=== PATIENT | female | born 1995 | race Caucasian/White ===

== ENCOUNTER 2019-11-24 09:32 | Outpatient (CLI) | payer BC, OTHER, SELFPAY ==
--- NOTE | ~2019-11-24 | US_ITS ---
EXAMINATION: US OB <= 14 weeks fetus DATE: 11/24/2019 10:25 INDICATION: First trimester dating TECHNIQUE: Real-time pelvic transabdominal and transvaginal ultrasound was performed. COMPARISON: None. FINDINGS: The uterus measures 12.3 x 7.4 x 6.4 cm. There is an intrauterine gestational sac. A yolk sac is identified. heart motion is identified measuring 171 beats per minute (bpm) by M-mode Do ppler. The crown rump length measures 2.1 cm , which correlates with an estimated gestational a ge of 8 weeks and 5 day(s) (+/-) 4 day(s). The right ovary measures 3.0 x 2.0 x 2.8 cm. The left ovary measures 2.1 x 1.2 x 1.7 cm. There is nor mal vascular flow in the ovaries. There is no free fluid in the pelvis. IMPRESSION: 1. Live intrauterine with an estimated gestational age of 8 weeks and 5 day(s) (+/-) 4 day( s) and an estimated delivery date of 06/30/2020. Reviewed, dictated and finalized at location B. IMPRESSION: 1. Live intrauterine with an estimated gestational age of 8 weeks and 5 day(s) (+/-) 4 day(s) and an estimated delivery date of 06/30/2020.
== END 2019-11-24 09:33 | disposition home or self-care (01) ==
LOC: ANHIMG 09:36
PROVIDERS: PCP Emergency Medicine; Visit Provider Obstetrics & Gynecology
DX: Z34.91 Encounter for supervision of normal pregnancy, unspecified, first trimester (principal); Z3A.08 8 weeks gestation of pregnancy
CPT/HCPCS: 76801

== ENCOUNTER 2020-01-06 12:46 | Outpatient (CLI) | payer OTHER, SELFPAY ==
--- NOTE | ~2020-01-06 | US_ITS ---
EXAMINATION: US OB follow up EXAM DATE: 01/06/2020 13:30 INDICATION: Encounter For Supervision Of Normal . 2nd trimester. TECHNIQUE: Pelvic obstetrical transabdominal sonogram was performed by a technologist. There are mu ltiple grayscale and Doppler images available for interpretation. Comparison is made to prior examina tion from 11/24/2019. FINDINGS: There is a single fetus identified in breech presentation with a heart rate of 145 beats pe r minute. The placenta is located in the anterior position. There is no sonographic evidence of retr oplacental hemorrhage identified. There is subjectively expected amount of amniotic fluid. BIOMETRIC DATA: Biparietal diameter (BPD): 3.2cm ----------------> 16 weeks 1 day. Head circumference (HC): 11.2 cm ----------------> 15 weeks 3 days. Abdominal circumference (AC): 9.4 cm ----------> 15 weeks 4 days. Femur length (FL): 1.7 cm --------------------------> 15 weeks 0 days. These measurements are concordant. HC/AC ratio is 1.20 (The 5th -- 95th percentile range is 1.06-1.36. Estimated weight is 119 g +/- 18 g. This is the 66th percentile when the currently reported cl inical gestation age 14 weeks 6 days, clinical estimated date of delivery (MARE-OPE) 06/30/2020 is used . estimated gestational age based on measurements from this exam is 15 weeks 4 days, with an es timated date of delivery (MARE-AUA) 06/25. IMPRESSION: 1. Single fetus in breech presentation with heart rate 145 beats per minute. 2. Estimated weight of 119 grams, 66 percentile using the currently reported clinical gestatio n age of 14 weeks 6 days, MARE(OPE) 06/30. Reviewed, dictated and finalized at location A. IMPRESSION: 1. Single fetus in breech presentation with heart rate 145 beats per minute. 2. Estimated weight of 119 grams, 66 percentile using the currently repo rted clinical gestation age of 14 weeks 6 days, MARE(OPE) 06/30.
== END 2020-01-06 12:47 | disposition home or self-care (01) ==
PROVIDERS: PCP Emergency Medicine; Visit Provider Obstetrics & Gynecology
DX: E72.12 Methylenetetrahydrofolate reductase deficiency (principal); Z34.92 Encounter for supervision of normal pregnancy, unspecified, second trimester; Z3A.15 15 weeks gestation of pregnancy
CPT/HCPCS: 76816

== ENCOUNTER 2020-02-01 13:20 | Outpatient (CLI) | payer OTHER, SELFPAY ==
--- NOTE | ~2020-02-01 | US_ITS ---
EXAMINATION: US OB /maternal detail DATE: 02/01/2020 14:44 INDICATION: Routine care. TECHNIQUE: Real-time ultrasound of the pelvis was performed. COMPARISON: Ultrasound 01/06/2020, 11/24/2019 FINDINGS: There is a single living fetus in vertex presentation. The placenta is anterior and fundal. he art rate is 147 beats per minute (bpm). The amniotic fluid volume is subjectively normal. The following biometric data were obtained: Biparietal diameter (BPD): 4.2 cm; head circumference (HC): 15.2 cm; abdominal circumference (AC): 13 .5 cm; femur length (FL): 3.2 cm. These measurements are concordant. Estimated weight is 283 g +/- 42 g, which correlates with 85th percentile when 06/30/20 is used as estimated date of delivery. As single measurements, these parameters are each equal to the following estimated gestational ages: BPD: 18 weeks 5 days. HC: 18 weeks 2 days. AC: 19 weeks 0 days. FL: 19 weeks 6 days. estimated gestational age based solely on measurements from this exam is 19 weeks 0 days +/- 1 weeks 2 days. The cerebral ventricles, cerebellum, cisterna magna, nuchal fold, nose/lips, nasal bone, and visualiz ed portions of the spine are normal. The heart is suboptimally visualized, but is normal. The diaphra gm, stomach, kidneys, and bladder are normal. There are two umbilical arteries to yield a 3-vessel co rd. The cord insertion is normal. IMPRESSION: 1. Single living fetus in vertex presentation. 2. Estimated weight is 283 g +/- 42 g, which correlates with 85th percentile when 06/30/20 is u sed as estimated date of delivery. This date was set by ultrasound on 11/24/2019. 3. Normal anatomic survey. Reviewed, dictated and finalized at location A. RAFT PILOT IMPRESSION: 1. Single living fetus in vertex presentation. 2. Estimated weight is 283 g +/- 42 g, which correlates with 85th percen tile when 06/30/20 is used as estimated date of delivery. This date was set by radha crowe on 11/24/2019. 3. Normal anatomic survey.
== END 2020-02-01 13:21 | disposition home or self-care (01) ==
PROVIDERS: PCP Emergency Medicine; Visit Provider Obstetrics & Gynecology
DX: Z34.90 Encounter for supervision of normal pregnancy, unspecified, unspecified trimester (principal); Z3A.19 19 weeks gestation of pregnancy
CPT/HCPCS: 76805

== ENCOUNTER 2020-03-23 12:57 | Outpatient (CLI) | payer OTHER, SELFPAY ==
--- NOTE | ~2020-03-23 | US_ITS ---
EXAMINATION: US OB follow up EXAM DATE: 03/23/2020 15:07 INDICATION: Routine care. 2nd trimester. TECHNIQUE: Pelvic obstetrical transabdominal sonogram was performed by a technologist. There are mu ltiple grayscale and Doppler images available for interpretation. Comparison is made to prior examina tion from 02/01/2020. FINDINGS: There is a single fetus identified in breech presentation with a heart rate of 157 beats pe r minute. The placenta is located in the anterior fundal position. There is no sonographic evidence of retroplacental hemorrhage identified. The amniotic fluid index is 16.2 centimeters, which is preet l. BIOMETRIC DATA: Biparietal diameter (BPD): 6.4cm ----------------> 25 weeks 5 days. Head circumference (HC): 25.1 cm ----------------> 27 weeks 2 days. Abdominal circumference (AC): 22.6 cm ----------> 27 weeks 0 days. Femur length (FL): 4.9 cm --------------------------> 26 weeks 3 days. These measurements are concordant. HC/AC ratio is 1.11 (The 5th -- 95th percentile range is 1.05-1.22. Estimated weight is 974 g +/- 146 g. This is the 76th percentile when the currently reported c linical gestation age 25 weeks 6 days, clinical estimated date of delivery (MARE-OPE) 06/30 is used. Fe agnes estimated gestational age based on measurements from this exam is 26 weeks 4 days, with an estima michelle date of delivery (MARE-AUA) 06/25. Additional views were obtained of the heart, sonographically normal. IMPRESSION: 1. Single fetus in breech presentation with heart rate 157 beats per minute. 2. Estimated weight of 974 grams, 76th percentile using the currently reported clinical gestat ion age of 25 weeks 6 days, MARE(OPE) 06/30. 3. Sonographically normal heart. Reviewed, dictated and finalized at location A. 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 Single fetus in breech presentation with heart rate 157 beats per minute. 2. Estimated weight of 974 grams, 76th percentile using the currently re ported clinical gestation age of 25 weeks 6 days, MARE(OPE) 06/30. 3. Sonographically normal heart.
== END 2020-03-23 12:58 | disposition home or self-care (01) ==
PROVIDERS: PCP Emergency Medicine; Visit Provider Obstetrics & Gynecology
DX: Z34.82 Encounter for supervision of other normal pregnancy, second trimester (principal); Z3A.25 25 weeks gestation of pregnancy
CPT/HCPCS: 76816

== ENCOUNTER 2020-06-02 09:41 | Outpatient (CLI) | payer OTHER, SELFPAY ==
--- NOTE | ~2020-06-02 | US_ITS ---
EXAMINATION: US OB follow up DATE: 06/02/2020 10:06 INDICATION: Assess growth and position during third trimester of TECHNIQUE: Real-time ultrasound of the pelvis was performed. The interpreting radiologist was not pre sent for the study. COMPARISON: 03/23/20 FINDINGS: There is a single living fetus in vertex presentation. The placenta is anterior. heart rate is 150 beats per minute (bpm). The amniotic fluid index is subjectively normal. The following biometric data were obtained: BPD: 8.7 cm -> 34 weeks 6 days Head circumference: 31.4 cm -> 35 weeks 1 days Abdominal circumference: 32.2 cm -> 36 weeks 1 days Femur length: 7.2 cm -> 36 weeks 6 days These measurements are concordant. Head circumference to abdominal circumference ratio: 0.97 (normal range 0.93-1.09). Estimated weight: 2845 g (+/-) 427 g. or 6 lbs. 4 oz. (+/-) 15 oz. IMPRESSION: 1. Single living fetus in vertex presentation with heart rate of 150 bpm. 2. Estimated weight is 37th percentile by Hadlock criteria when 06/25/2020 is used as the estima michelle date of delivery (MARE). Please correlate with clinical information or earlier ultrasounds for mos t accurate MARE. Reviewed, dictated and finalized at location B. IMPRESSION: 1. Single living fetus in vertex presentation with heart rate of 150 bpm. 2. Estimated weight is 37th percentile by Hadlock criteria when 06/25/2020 is used as the estimated date of delivery (MARE). Please correlate with clinica l information or earlier ultrasounds for most accurate MARE.
== END 2020-06-02 09:42 | disposition home or self-care (01) ==
LOC: ANHIMG 09:45
PROVIDERS: PCP Emergency Medicine; Visit Provider Obstetrics & Gynecology
DX: Z33.1 Pregnant state, incidental (principal)
CPT/HCPCS: 76816

== ENCOUNTER 2020-06-21 22:52 | Inpatient (IN) | payer OTHER, SELFPAY ==
--- NOTE | ~2020-06-21 | US_ITS ---
EXAMINATION: US pelvic complete DATE: 06/22/2020 07:47 INDICATION: Retained products of conception. TECHNIQUE: Multiple transabdominal sonographic images of the pelvis were obtained. COMPARISON: Ultrasound 06/02/2020 FINDINGS: The uterus measures 20.2 x 8.7 x 10.0 cm. There is no free fluid in the pelvis. The endometrial compl ex measures 20 mm in thickness without internal vascular flow. The ovaries are not visualized. IMPRESSION: 1. Thickened endometrial complex suspicious for retained products of conception. Reviewed, dictated and finalized at location A. IMPRESSION: 1. Thickened endometrial complex suspicious for retained products of conception .
[2020-06-21] MEDS: LACTATED RINGERS 1,000 ML 125 ML IV CONT (23:20)
[2020-06-21 23:43] VITALS: BP 105/44; PULSE 101
[2020-06-21 23:44] VITALS: BMI 48.9
[2020-06-21 23:45] LABS: Basophils Percent Auto 0.3 % (0.2-1.2); Eosinophils Absolute Auto 0.1 K/mm3 (0-0.3); Eosinophils Percent Auto 0.4 % (0-4.4); Hematocrit 37.2 % (37.0-47.0); Hemoglobin 12.5 g/dL (12.0-15.0); Immature Granulocyte Absolute 0.13 K/mm3 (0.00-0.031); Immature Granulocyte Percent A 1.1 % (0-0.5); Lymphocytes Absolute Auto 1.84 K/mm3 (0.9-3.2); Lymphocytes Percent Auto 15.8 % (18.3-44.2); Mean Corpuscular HGB Conc 33.6 g/dl (32-36); Mean Corpuscular Hemoglobin 31.7 pg (26-34); Mean Corpuscular Volume 94.4 fl (80-100); Monocytes Percent Auto 8.8 % (2.6-8.5); Neutrophils Absolute Auto 8.5 K/mm3 (1.3-6.7); Neutrophils Percent Auto 73.6 % (45.5-73.1); Platelet Count Result 211 k/mm3 (150-375); Red Blood Count 3.94 M/mm3 (4.2-5.4); Red Cell Distribution Width 14.9 % (11.5-14.5); White Blood Count 11.6 K/mm3 (4.5-10.0)
[2020-06-21 23:46] VITALS: BP 108/58; PULSE 95
--- NOTE | 2020-06-21 23:46 | LDADM ---
This patient, Emily Alejandro, was admitted to Labor/Delivery/Recovery 106 on 06/21/20 at 22:52. Plans for labor, pain management and were discussed with patient. Patient/family oriented to hospital policies and general routines including ID bracelet, bed and alarms, visiting hours, pain management, procedures, bathroom and other care routines, personal items, smoking policy, room service/diet and guest tray routines, security routines, and visiting hours. Patient/Family are encouraged to report perceived risks to care and to ask questions if they do not understand what they are told or what they should do. See OBIX for further documentation.
[2020-06-22] VITALS (29 sets, daily range): BP systolic 93–125; BP diastolic 43–78; PULSE 76–109; RESP 12–22; TEMP 36.4–37.4; O2SAT 98–99
--- NOTE | 2020-06-22 00:47 | PM.IMHP ---
H&P: HPI History of Present Illness Date/Time: 06/22/20 00:47 25 yo F , 38w5d, w/hx of TV, candidiasis, GBS, MTHFR, low progesterone, morbid obesity, asthma, ADHD, and GERD who presents for spontaneous rupture membranes at 10:00 p.m. on 06/21/2020 with spontaneous onset of labor presented to labor and delivery 6 cm dilated. Chief Complaint: Term with spontaneous rupture membranes and spontaneous onset of labor Review of Systems Review of Systems: All systems reviewed & are unremarkable except as noted in HPI and below Constitutional: Constitutional: Reports no additional constitutional complaints Eyes: Eyes: Reports no additional eye complaints ENT: Reports system reviewed and no additional complaints, except as documented Cardiovascular: Cardiovascular: Reports no additional cardiovascular complaints Respiratory: Respiratory: Reports no additional respiratory complaints Gastrointestinal: Gastrointestinal: Reports no additional gastrointestinal complaints Genitourinary: Genitourinary: Reports no additional female genitourinary complaints Musculoskeletal: Musculoskeletal: Reports no additional musculoskeletal complaints Neurologic: Reports system reviewed and no additional complaints, except as documented Psychiatric: Psychiatric: Reports no additional psychiatric complaints Endocrine: Endocrine: Reports no additional endocrine complaints Hematologic/Lymphatic: Hematologic/Lymphatic: Reports no additional hematologic/lymphatic complaints Allergic/Immunologic: Allergic/Immunologic: Reports no additional allergic/immunologic complaints [facility] Past Medical History Medical History (Updated 06/22/20 @ 00:56 by Ciro Peoples MD) ADHD Asthma Bacterial vaginosis Candidiasis of female genitalia GBS carrier GERD (gastroesophageal reflux disease) MTHFR mutation (methylenetetrahydrofolate reductase) Obesity Trichomonas vaginalis (TV) infection Vaginal delivery 01/12/20151393 hrs.8 lbs.4 oz.FStandard Vaginal DeliveryFull Term [facility] [place]. [place] Surgical History Surgical History (Updated 06/22/20 @ 00:56 by Ciro Peoples MD) History of tonsillectomy S/p bilateral myringotomy with tube placement Family History Family History Father Bone cancer Social History Social History (Updated 06/22/20 @ 00:56 by Ciro Peoples MD) Smoking status: Never smoker Second hand tobacco smoke exposure: No Alcohol intake: never Substance use: never Substance use type: does not use Living arrangements: with family Occupation/Education: occupation Gender identity (if verbalized by the patient): Female Sexual Orientation (if Verbalized by the Patient): Straight or Heterosexual Spiritual care concerns: No Agree to blood products: Yes Meds Home Medications and Allergies Home Medications Medication Instructions Recorded Confirmed Type PNV cmb#95-ferrous fumarate-FA 1 tablet PO DAILY 06/01/20 06/01/20 History [] Allergies Allergy/AdvReac Type Severity Reaction Status Date / Time Penicillins Allergy Intermediate Hives / Unverified 05/03/18 17:33 Red Face Vital Signs Vital Signs - 24 hr 06/21/20 23:43 06/21/20 23:46 06/22/20 00:00 Pulse Rate 101 H 95 84 Blood Pressure 105/44 L 108/58 L 108/77 06/22/20 00:16 06/22/20 00:30 06/22/20 00:46 Pulse Rate 108 H 79 85 Blood Pressure 93/43 L 103/78 110/74 Exam Const: General: cooperative, healthy appearing, comfortable, no acute distress, well developed, alert, awake and Physically active Nutritional Appearance: average body habitus and obese Orientation/consciousness: patient oriented x3 Limitations: no limitations HENMT: Head: normal to inspection Ears: hearing grossly normal bilaterally General nose exam: Normal external nose present Face and sinus: normal facial exam Mo
--- NOTE | 2020-06-22 01:02 | WPDHPUPDATE1 ---
History and Physical Update Update Date/Time: 06/22/20 01:02 History and Physical has been reviewed, including an updated exam of the patient. There are NO changes in the patient's condition. Risks, benefits, and alternatives have been discussed and questions answered. Patient agrees to proceed with procedure. 25 yo F , 38w5d, w/hx of TV, candidiasis, GBS, MTHFR, low progesterone, morbid obesity, asthma, ADHD, and GERD who presents for spontaneous onset of labor spontaneous rupture membranes at term
--- NOTE | 2020-06-22 01:03 | WPDOBADMIT ---
Obstetrics - Admit Note Admission Note: record reviewed. No pertinent additions to the history and/or any subsequent changes in the physical findings that are not consistent with the expected course of the were found. Additions to the history and/or subsequent changes in the physical findings follow. None. 25 yo F , 38w5d, w/hx of TV, candidiasis, GBS, MTHFR, low progesterone, morbid obesity, asthma, ADHD, and GERD who presents for spontaneous onset of labor spontaneous rupture membranes at term
[2020-06-22] MEDS: OXYTOCIN 30 UNITS/NS 500 ML 30 UNITS/500 ML BAG 999 UNITS IV CONT (01:20)
--- NOTE | 2020-06-22 01:34 | PM.OBPRVD ---
OB - Delivery Note Procedure Delivery date: 06/22/20 Procedure: Normal spontaneous vertex vaginal delivery of viable female infant and placenta Intrapartal events: None Induction method: none Delivery monitor: external FHT and external uterine Route of delivery: Episiotomy description: None Laceration Description: None Specimen: Yes (Placenta, cord blood, cord blood gases) Quantitative Blood Loss (ml): 100 Anesthesia type: None Disposition: floor Narrative: Complete cervical dilation normal spontaneous vertex vaginal delivery a viable female infant over an intact perineum normal delivery of vertex the anterior shoulder and baby delivered and placed onto the maternal abdomen spontaneous respirations and cry with stimulation cord clamped and cut handed to the nursery nurses in attendance scores 9 and 9 weight 7 lb 15 oz 19 in long taken to the nursery in stable condition placenta delivered spontaneously intact with a three-vessel cord the uterus contracted well Pitocin given intravenously cord gas obtained cord blood obtained placenta sent to pathology there were no cuts tears or lacerations the cervix and rectum were checked there is no sponges left in the vagina [place] Baby Date of : 06/22/20 Time of : 01:16 Weeks of gestation at delivery: 38 Infant gender: Female (Jacquelyn Suarez) Weight (pounds): 7 Weight (ounces): 15 presentation: vertex position: Left Occiput Anterior Placenta delivery description: Spontaneous and Normal Configuration cord vessel description: 3 Vessels score one minute: 9 score five minutes: 9 Narrative: Viable female infant normal exam normal transition taken to the nursery in stable condition breast feeding media liaison officer Dr. heck
--- NOTE | 2020-06-22 01:37 | PM.OBDSVD ---
DS: Admitting Diagnosis Admitting Diagnosis Admitting Diagnosis: Term Spontaneous rupture membranes Spontaneous onset of labor MTHFR GBS ADHD Obesity in Asthma GERD DS: Discharge Diagnosis Discharge Diagnosis (1) Term delivered: Code(s): O80 - Encounter for full-term uncomplicated delivery Status: Acute (2) MTHFR mutation (methylenetetrahydrofolate reductase): Code(s): Z15.89 - Genetic susceptibility to other disease Status: Acute (3) Spontaneous onset of labor: Status: Acute (4) Spontaneous rupture of membranes: Status: Acute (5) GBS carrier: Code(s): Z22.330 - Carrier of Group B streptococcus Status: Acute (6) hemorrhage: Code(s): O72.1 - Other immediate hemorrhage Status: Acute Assessment and Plan: resolved with protocol 1000cc ebl pp OB - DS: Summary Hospital Course Time spent discussing smoking cessation with patient: 3 to 10 minutes OB Procedures : Ultrasound OB Procedures Intrapartum: Spontaneous Vag Delivery OB Procedures: : None and Other (PPH protocol) Peripartum Data Delivery Method: Natural Vaginal Laceration Description: None Episiotomy description: None Procedures: Normal spontaneous vertex vaginal delivery a viable female infant and placenta complications: uterine atony Mack 1: Gender: Female (Jacquelyn Suarez) Disposition of : home Status at Discharge Functional status at discharge: independent ambulation Overall status at discharge: patient is back to baseline Time Spent with Patient Time attestation: Total time spent providing and/or coordinating discharge services: Time spent: Less than 30 minutes Exam Const: General: cooperative, healthy appearing, comfortable, no acute distress, well developed, alert, awake and Physically active Nutritional Appearance: average body habitus, well nourished and obese Orientation/consciousness: patient oriented x3 Limitations: no limitations HENMT: Head: normal to inspection Eyes: General: appearance normal, both eyes and all related structures Neck: Neck: normal visual inspection Chest: Chest palpation & inspection: normal inspection of the chest Breast/axilla palpation: normal palpation of the breasts Resp: Effort & Inspection: normal respiratory effort Auscultation: clear to auscultation bilaterally Cardio: Rate: regular rate Rhythm: regular rhythm GI: Inspection: normal to inspection GI Palp: Yes Soft to palpation Auscultation: normal bowel sounds : External Female Exam: normal external appearance Bimanual exam- vagina & uterus: non-tender Back/Spine/Pelvis: Back: no CVA tenderness Skin: General skin exam: normal color Neuro: General: patient oriented x3, gait normal, tone normal, moves all extremities, Normal light touch and pain sensation, no meningeal signs and no focal motor deficits Extrem: General: normal to inspection, full ROM and no calf tenderness Psych: Appearance: grossly normal Mental Status: mental status grossly normal Speech and movement: Normal speech and movement present Affect: normal affect Attitude: cooperative Thought process: Normal thought process present Thought content: Yes Normal thought content present Insight: Good insight present (Psych) Judgement: Good judgement present (Psych) DS: Data Data Completed and Pending Labs on day of discharge: Labs from last 24 hours 06/21/20 06/21/20 06/21/20 23:34 23:34 23:34 WBC 11.6 H RBC 3.94 L Hgb 12.5 Hct 37.2 MCV 94.4 MCH 31.7 MCHC 33.6 RDW 14.9 H Plt Count 211 MPV 10.0 Immature Gran % (Auto) 1.1 H Neut % (Auto) 73.6 H Lymph % (Auto) 15.8 L [place] % (Auto) 8.8 H Eos % (Auto) 0.4 Baso % (Auto) 0.3 Lymph # (Auto) 1.84 [place] # (Auto) 1.0 H Eos # (Auto) 0.1 Baso # (Auto) 0.0 Abs Immat Gran (auto) 0.13 H Absolute Neuts (au
[2020-06-22] MEDS: OXYTOCIN 30 UNITS/NS 500 ML 30 UNITS/500 ML BAG 125 UNITS IV CONT (01:52)
--- NOTE | 2020-06-22 03:35 | OBPPTRN ---
Patient transferred to post room #288 via wheelchair. Support person present. Oriented to unit, room, information board, rooming in, admission packet and security measures. Patient verbalizes understanding.
--- NOTE | 2020-06-22 04:47 | PC.NURSE ---
Dr. Peoples notified of pt had increased bleeding with passage of clots during recovery and now on post floor. SEE [employer] QBL. Fundus has remained firm. Methergine ordered. Kat post nurse notified.
[2020-06-22] MEDS: CARBOPROST TROMETHAMINE 250 MCG/ML AMPUL IM (04:49)
--- NOTE | 2020-06-22 06:25 | PC.NURSE ---
Dr. Peoples informed of bimanual exam - large amount of clots palpable- could only reach to removed 183 ml of blood and clots QBL total now 998. Informed there are still clots that I couldn't get to come out. Fundus firm at U and no longer having a trickle of red blood as she was when I came up to see the pt. Requested additional meds; order received for IM MEthergine and rectal Cytotec.
[2020-06-22] MEDS: METHYLERGONOVINE MALEATE 0.2 MG/ML VIAL IM (06:46)
[2020-06-22] MEDS: miSOPROStol 200 MCG TABLET 1000 MCG RECTAL (06:51)
--- NOTE | 2020-06-22 07:01 | PC.NURSE ---
Addendum entered by Yomaira Baker RN 06/22/20 07:10: Also to give Methergine q6 hr from IM dose. Original Note: Dr. Peoples informed that when Cytotec was given, also noted some trickling of dark red blood from vagina with small clot. Fundus remains firm at U with no additional clots expelled. Order received for IV fluids and U/S to check for retained products of conception.
[2020-06-22] MEDS: DEXTROSE 5%/LACTATED RINGERS 1,000 ML 125 ML IV CONT (07:25)
[2020-06-22] MEDS: MULTIVIT/MIN/PREN/FOL AC/IRON TABLET 1 TAB PO (09:16)
[2020-06-22 09:27] LABS: Rapid Plasma Reagin Non-Reactive (NonReactive)
[2020-06-22 10:19] LABS: Basophils Percent Auto 0.2 % (0.2-1.2); Eosinophils Percent Auto 0.1 % (0-4.4); Hematocrit 36.2 % (37.0-47.0); Hemoglobin 12.1 g/dL (12.0-15.0); Immature Granulocyte Absolute 0.17 K/mm3 (0.00-0.031); Immature Granulocyte Percent A 0.9 % (0-0.5); Lymphocytes Percent Auto 7.3 % (18.3-44.2); Mean Corpuscular HGB Conc 33.4 g/dl (32-36); Mean Corpuscular Hemoglobin 31.6 pg (26-34); Mean Corpuscular Volume 94.5 fl (80-100); Mean Platelet Volume 10.9 fl (7.4-10.4); Monocytes Absolute Auto 1.2 K/mm3 (0.1-0.6); Monocytes Percent Auto 6.1 % (2.6-8.5); Neutrophils Absolute Auto 16.3 K/mm3 (1.3-6.7); Neutrophils Percent Auto 85.4 % (45.5-73.1); Platelet Count Result 199 k/mm3 (150-375); Red Blood Count 3.83 M/mm3 (4.2-5.4); Red Cell Distribution Width 14.9 % (11.5-14.5); White Blood Count 19.1 K/mm3 (4.5-10.0)
--- NOTE | 2020-06-22 11:20 | PC.NURSE ---
Breast pump provided due to ineffective feedings and use of nipple shield. Instructions given on breast pump care and usage, pumping schedule, nipple care, and collection and storage of breast milk. Assessed patient for correct flange size, placement and draw. Patient verbalizes and demonstrates understanding of instructions.
[2020-06-22] MEDS: METHYLERGONOVINE MALEATE 0.2 MG TABLET PO ×3 (13:37→23:56)
[2020-06-22] MEDS: IBUPROFEN 600 MG TABLET PO (18:47)
[2020-06-23] MEDS: ACETAMINOPHEN 325 MG TABLET 650 MG PO (00:02)
[2020-06-23] MEDS: IBUPROFEN 600 MG TABLET PO (00:03)
[2020-06-23 05:36] LABS: Hemoglobin 10.7 g/dL (12.0-15.0)
[2020-06-23 07:50] VITALS: BP 104/60; PULSE 108; RESP 18; TEMP 36.6; O2SAT 100
--- NOTE | 2020-06-23 09:55 | PM.OBPNVD ---
OB - PN: Subj Subjective Date/time seen: 06/23/20 09:56 Patient comments: no complaints, pain well controlled, tolerating diet and flatus present [place] baby status: doing well and nursing well feeding status: exclusively breast feeding OB - PN: Obj Data Labs CBC & Chem 7: 06/23/20 05:30 Labs: Laboratory Results - last 24 hr 06/23/20 05:30 Hgb 10.7 L Hct 32.0 L OB - PN A/P Plan day: 1 Plan: routine care, discharge home and follow up 6 weeks Time Spent With Patient Time: Total time spent is greater than 50% in coordination of care (as documented) at patient's floor/unit and/or counseling patient: Time with patient: less than 15 minutes Review of Systems Review of Systems: All systems reviewed & are unremarkable except as noted in HPI and below Exam Const: General: cooperative, healthy appearing, comfortable, no acute distress, well developed, alert and awake HENMT: Head: normal to inspection Eyes: General: appearance normal, both eyes and all related structures Neck: Neck: normal visual inspection Chest: Chest palpation & inspection: normal inspection of the chest Resp: Effort & Inspection: normal respiratory effort Cardio: Rate: regular rate Rhythm: regular rhythm GI: Inspection: normal to inspection : External Female Exam: normal external appearance Bimanual exam- vagina & uterus: non-tender Back/Spine/Pelvis: Back: no CVA tenderness Skin: General skin exam: normal color Neuro: General: patient oriented x3, gait normal, tone normal and moves all extremities Extrem: General: normal to inspection Psych: Appearance: grossly normal Mental Status: mental status grossly normal Speech and movement: Normal speech and movement present Affect: normal affect Attitude: cooperative Thought process: Normal thought process present Thought content: Yes Normal thought content present Insight: Good insight present (Psych) Judgement: Good judgement present (Psych)
[2020-06-24 07:56] VITALS: BP 112/65; PULSE 100; RESP 20; TEMP 36.4; O2SAT 99
== END 2020-06-23 11:27 | disposition home or self-care (01) | DRG 560 ==
LOC: ANHLDR 06-22 01:43 → ANHOB2 06-22 03:50
PROVIDERS: Admitting Provider Obstetrics & Gynecology; PCP Emergency Medicine; Visit Provider Obstetrics & Gynecology
DX: O99.824 Streptococcus B carrier state complicating childbirth (principal); Z37.0 Single live birth; Z3A.38 38 weeks gestation of pregnancy; E66.01 Morbid (severe) obesity due to excess calories; O99.214 Obesity complicating childbirth; O99.52 Diseases of the respiratory system complicating childbirth; J45.909 Unspecified asthma, uncomplicated; O99.62 Diseases of the digestive system complicating childbirth; K21.9 Gastro-esophageal reflux disease without esophagitis; O99.284 Endocrine, nutritional and metabolic diseases complicating childbirth; E72.12 Methylenetetrahydrofolate reductase deficiency; O99.344 Other mental disorders complicating childbirth; F90.9 Attention-deficit hyperactivity disorder, unspecified type; O72.1 Other immediate postpartum hemorrhage
CPT/HCPCS: 36415; 76856; 84112; 85014; 85018; 85025; 86592; 86850; 86900; 86901; 88307; A9270; J2210; J2590; J7120; J7121

== ENCOUNTER 2021-06-14 19:05 | Observation (INO) | payer OTHER, SELFPAY ==
[2021-06-14] VITALS (10 sets, daily range): BP systolic 105–122; BP diastolic 55–66; PULSE 101–125; TEMP 36.6; BMI 47.6
[2021-06-14 19:48] LABS: Hematocrit 34.6 % (37.0-47.0); Hemoglobin 11.5 g/dL (12.0-15.0); Mean Corpuscular HGB Conc 33.2 g/dl (32-36); Mean Corpuscular Hemoglobin 30.8 pg (26-34); Mean Corpuscular Volume 92.8 fl (80-100); Mean Platelet Volume 9.8 fl (7.4-10.4); Platelet Count Result 201 k/mm3 (150-375); Red Blood Count 3.73 M/mm3 (4.2-5.4); Red Cell Distribution Width 14.6 % (11.5-14.5); White Blood Count 5.6 K/mm3 (4.5-10.0)
[2021-06-14 19:54] LABS: Add Urine Microscopic? YES; Appearance Urine Cloudy (Clear); Bacteria Urine 2+ /hpf; Bilirubin Urine Negative (Negative); Blood Urine Negative (Negative); Color Urine Yellow (Yellow); Glucose Urine UA Negative (Negative); Ketones Urine Trace mg/dL (Negative); Leukocyte Esterase Ur 3+ LEU/UL (Negative); Mucus Urine Rare /lpf; Nitrate Urine Negative (Negative); Protein Urine Negative (Negative); Specific Grav Ur 1.018 (1.001-1.035); Squamous Epithelial Cell Urine Many /hpf (Few); Urobilinogen Urine Negative mg/dL (<2.0); WBC Clumps Urine Present /HPF; WBC Urine 31-50 /hpf
[2021-06-14 19:57] LABS: Alanine Aminotransferase 20 U/L (4-35); Albumin Level 3.5 g/dL (3.5-5.1); Alkaline Phosphatase 138 U/L (38-126); Anion Gap 7 mmol/L (8-16); Aspartate Amino Transferase 31 U/L (14-36); Bilirubin,Total 0.3 mg/dL (0.2-1.3); Blood Urea Nitrogen 5 mg/dL (7-17); Calcium 8.3 mg/dL (8.4-10.2); Carbon Dioxide 22 mmol/L (22-30); Chloride 105 mmol/L (98-107); Estimated Glomerular Filt Rate > 60; Glucose 93 mg/dL (65-110); Potassium 3.8 mmol/L (3.4-5.0); Sodium 134 mmol/L (137-145); Uric Acid 3.4 mg/dL (2.5-7.5)
[2021-06-14 20:50] LABS: Band Neutrophils Percent 4 % (0-6); Monocytes Percent Manual 9 % (3-9); Neutrophils Absolute Manual 4.59 K/mm3 (1.7-7.2); Neutrophils Percent Manual 78 % (46-73); Platelet Estimate Adequate (Adequate); Total Cells Counted 100
--- NOTE | 2021-06-15 14:46 | P.PNOB_ITS ---
OB - Triage/Final Diagnosis Visit Information Date of evaluation: 06/14/21 Reason for evaluation: other (headache) Comments/Additional reasons for admission: I have assessed the risk for this patient, Emily Alejandro, and determined that she would benefit from observation care. Evaluation Laboratory results: Laboratory Tests 06/14/21 06/14/21 06/14/21 19:38 19:38 19:38 WBC 5.6 RBC 3.73 L Hgb 11.5 L Hct 34.6 L MCV 92.8 MCH 30.8 MCHC 33.2 RDW 14.6 H Plt Count 201 MPV 9.8 Immature Gran % (Auto) Not Reportable Neut % (Auto) Not Reportable Lymph % (Auto) Not Reportable [place] % (Auto) Not Reportable Eos % (Auto) Not Reportable Baso % (Auto) Not Reportable Lymph # (Auto) Not Reportable [place] # (Auto) Not Reportable Eos # (Auto) Not Reportable Baso # (Auto) Not Reportable Abs Immat Gran (auto) Not Reportable Absolute Neuts (auto) Not Reportable Absolute Nucleated RBC Not Reportable Total Counted 100 Neutrophils % (Manual) 78 H Band Neutrophils % 4 Lymphocytes % (Manual) 9.0 L Monocytes % (Manual) 9 Nucleated RBC % Not Reportable Abs Neuts (Manual) 4.59 Abs Lymphs (Manual) 0.50 L Abs Monocytes (Manual) 0.50 Platelet Estimate Adequate Sodium 134 L Potassium 3.8 Chloride 105 Carbon Dioxide 22 Anion Gap 7 L BUN 5 L Creatinine 0.40 L Estim Creat Clear Calc Not Reportable Estimated GFR > 60 Glucose 93 Uric Acid 3.4 Calcium 8.3 L Total Bilirubin 0.3 AST 31 ALT 20 Alkaline Phosphatase 138 H Total Protein 7.0 Albumin 3.5 Urine Color Yellow Urine Appearance Cloudy H Urine pH 6.0 Ur Specific Walker 1.018 Urine Protein Negative Urine Glucose (UA) Negative Urine Ketones Trace Ur Blood (Man) Negative Urine Nitrate Negative Urine Bilirubin Negative Urine Urobilinogen Negative Leukocyte Esterase Rfl 3+ H Urine RBC 3-5 H Urine WBC 31-50 H Urine WBC Clumps Present H Ur Squamous Epith Cells Many H Urine Bacteria 2+ H Urine Mucus Rare Vital signs: Vital Signs - 24 hr 06/14/21 19:25 06/14/21 19:27 06/14/21 19:30 Temperature 36.6 C Pulse Rate 125 H 123 H Blood Pressure 122/64 106/60 06/14/21 19:45 06/14/21 20:00 06/14/21 20:15 Temperature Pulse Rate 111 H 108 H 101 H Blood Pressure 115/62 117/64 121/66 06/14/21 20:30 06/14/21 20:45 06/14/21 21:00 Temperature Pulse Rate 108 H 106 H 104 H Blood Pressure 112/58 L 108/58 L 111/55 L 06/14/21 21:15 Temperature Pulse Rate 106 H Blood Pressure 105/62
== END 2021-06-14 21:45 | disposition home or self-care (01) ==
PROVIDERS: Admitting Provider Student in an Organized Health Care Education/Training Program; PCP Emergency Medicine; Visit Provider Student in an Organized Health Care Education/Training Program
DX: O26.893 Other specified pregnancy related conditions, third trimester (principal); R51.9 Headache, unspecified; Z3A.33 33 weeks gestation of pregnancy
CPT/HCPCS: 36415; 80053; 81001; 84550; 85025; 87086; G0378; G0379

== ENCOUNTER 2021-07-26 05:54 | Inpatient (IN) | payer OTHER, SELFPAY ==
[2021-07-26] VITALS (25 sets, daily range): BP systolic 91–135; BP diastolic 40–113; PULSE 61–95; RESP 18; TEMP 36.3–36.7; O2SAT 98–99; BMI 48.4
--- NOTE | 2021-07-26 06:44 | LDADM ---
This patient, Emily Alejandro, was admitted to Labor/Delivery/Recovery 106 on 07/26/21 at 05:54. Plans for labor, pain management and were discussed with patient. Patient/family oriented to hospital policies and general routines including ID bracelet, bed and alarms, visiting hours, pain management, procedures, bathroom and other care routines, personal items, smoking policy, room service/diet and guest tray routines, security routines, and visiting hours. Patient/Family are encouraged to report perceived risks to care and to ask questions if they do not understand what they are told or what they should do. See OBIX for further documentation.
[2021-07-26 06:57] LABS: Basophils Percent Auto 0.2 % (0.2-1.2); Eosinophils Absolute Auto 0.1 K/mm3 (0-0.3); Eosinophils Percent Auto 0.5 % (0-4.4); Hematocrit 34.8 % (37.0-47.0); Hemoglobin 11.3 g/dL (12.0-15.0); Immature Granulocyte Absolute 0.07 K/mm3 (0.00-0.031); Immature Granulocyte Percent A 0.7 % (0-0.5); Lymphocytes Absolute Auto 1.45 K/mm3 (0.9-3.2); Lymphocytes Percent Auto 15.2 % (18.3-44.2); Mean Corpuscular HGB Conc 32.5 g/dl (32-36); Mean Corpuscular Hemoglobin 29.7 pg (26-34); Mean Corpuscular Volume 91.6 fl (80-100); Mean Platelet Volume 10.5 fl (7.4-10.4); Monocytes Absolute Auto 0.7 K/mm3 (0.1-0.6); Monocytes Percent Auto 7.2 % (2.6-8.5); Neutrophils Absolute Auto 7.3 K/mm3 (1.3-6.7); Neutrophils Percent Auto 76.2 % (45.5-73.1); Platelet Count Result 200 k/mm3 (150-375); Red Cell Distribution Width 15.9 % (11.5-14.5); White Blood Count 9.6 K/mm3 (4.5-10.0)
[2021-07-26] MEDS: OXYTOCIN 30 UNITS/NS 500 ML 30 UNITS/500 ML BAG IV CONT (07:06)
[2021-07-26] MEDS: LACTATED RINGERS 1,000 ML 125 ML IV CONT (07:07)
--- NOTE | 2021-07-26 08:48 | PM.IMHP ---
H&P: HPI History of Present Illness Date/Time: 07/26/21 08:48 Chief Complaint: Intrauterine at term Review of Systems Cardiovascular: Cardiovascular: Denies chest pain, Denies leg edema, Denies palpitations, Denies dyspnea and Denies dyspnea on exertion Respiratory: Respiratory: Denies cough, Denies dyspnea and Denies dyspnea on exertion Gastrointestinal: Gastrointestinal: Denies abdominal pain, Denies constipation, Denies diarrhea, Denies nausea and Denies vomiting Genitourinary: Genitourinary: Denies hematuria, Denies urinary frequency, Denies dysuria, Denies pelvic pain, Denies urinary incontinence and Denies vaginal discharge Neurologic: Reports system reviewed and no additional complaints, except as documented Psychiatric: Psychiatric: Reports no additional psychiatric complaints Endocrine: Endocrine: Denies palpitations PMFSH Past Medical History Medical History (Updated 07/26/21 @ 08:53 by Fco Lange MD) ADHD Asthma Bacterial vaginosis Candidiasis of female genitalia GBS carrier GERD (gastroesophageal reflux disease) MTHFR mutation (methylenetetrahydrofolate reductase) Obesity Trichomonas vaginalis (TV) infection Vaginal delivery 01/12/20151393 hrs.8 lbs.4 oz.FStandard Vaginal [facility]Full [facility] Surgical History Surgical History (Updated 06/22/20 @ 00:56 by Ciro Peoples MD) History of tonsillectomy S/p bilateral myringotomy with tube placement Family History Family History Father Bone cancer Social History Social History (Updated 06/22/20 @ 00:56 by Ciro Peoples MD) Smoking status: Never smoker Second hand tobacco smoke exposure: Yes Alcohol intake: never Substance use: never Substance use type: does not use Gender identity (if verbalized by the patient): Female Sexual Orientation (if Verbalized by the Patient): Straight or Heterosexual Spiritual care concerns: No Agree to blood products: Yes Meds Home Medications and Allergies Home Medications Medication Instructions Recorded Confirmed Type PNV cmb#95-ferrous fumarate-FA 1 tablet PO DAILY 06/01/20 07/26/21 History [] Allergies Allergy/AdvReac Type Severity Reaction Status Date / Time Penicillins Allergy Intermediate Hives / Verified 07/03/21 15:21 Red Face latex Allergy Itching Verified 07/03/21 15:20 Vital Signs Vital Signs - 24 hr 07/26/21 07:00 07/26/21 07:07 07/26/21 07:31 Temperature 36.4 C Pulse Rate 81 91 Blood Pressure 124/66 115/56 L 07/26/21 08:01 07/26/21 08:31 Temperature Pulse Rate 77 76 Blood Pressure 112/62 113/65 Exam Const: General: no acute distress Eyes: EOM: EOMs intact bilaterally Neck: Neck: supple Thyroid: thyroid normal Chest: Breast/axilla inspection: normal inspection of the breasts Breast/axilla palpation: normal palpation of the breasts, normal palpation of the axillae and no axillary lymphadenopathy Resp: Effort & Inspection: normal respiratory effort Auscultation: clear to auscultation bilaterally Cardio: Rate: regular rate Rhythm: regular rhythm GI: Inspection: non-distended and other (Gravid) GI Palp: Yes Soft to palpation, No Tenderness to palpation present (GI) and No Guarding due to palpation present (GI) Auscultation: normal bowel sounds : Speculum Exam - Vagina: No vaginal bleeding OB/external & speculum: external exam normal; No vaginal bleeding Skin: General skin exam: normal color and no rashes or lesions noted Neuro: Cognition (Neuro): normal cognition Speech: normal speech Extrem: General: normal to inspection Psych: Mental Status: mental status grossly normal Affect: normal affect H&P: Results Labs Labs: Short CBC 07/26/21 Range/Units 06:47 WBC 9.6 (4.5-10.0) K/mm3 Hgb 11.3 L (12.0-15.0) g/dL Hct 34.8 L (37.0-47.0)
[2021-07-26] MEDS: TRANEXAMIC ACID 1,000MG/ISO100 1,000 MG/100 ML BAG 200 MG IVPB (09:53)
--- NOTE | 2021-07-26 10:07 | PM.OBPRVD ---
OB - Delivery Note Procedure Delivery date: 07/26/21 Procedure: Patient pushed for a spontaneous vaginal delivery. The fetus was delivered atraumatically and placed on the maternal abdomen. The cord was clamped and cut after 1 minute of life. The cord was double clamped and cut and a segment of cord was collected for cord gases. Cord blood was collected for blood type and Coomb's testing. The placenta delivered spontaneously and was noted to be intact. The perineum was inspected and there was a 1st degree perineal laceration. The laceration was repaired with 3-0 vicryl in the usual fashion. The uterus was firm and good hemostasis was noted. The patient and fetus were stable in the delivery room. Induction method: Per Pitocin Protocol Delivery augmentation: Rupture of Membranes Delivery monitor: External FHT Route of delivery: Episiotomy description: None Laceration Description: Perineal - 1st Degree Delivery repair: vicryl Specimen: No Quantitative Blood Loss (ml): 300 Anesthesia type: Local Disposition: Floor () Complications: No immediate complications Baby Date of : 07/26/21 Time of : 09:52 Weeks of gestation at delivery: 39 gender: Male Weight (pounds): 8 Weight (ounces): 9 presentation: vertex position: Right Occiput Posterior Placenta delivery description: Spontaneous Cord Vessel Description: 3 Vessels score one minute: 9 score five minutes: 9
[2021-07-26] MEDS: OXYTOCIN 30 UNITS/NS 500 ML 30 UNITS/500 ML BAG 125 UNITS IV CONT (10:32)
[2021-07-26] MEDS: fentaNYL CITRATE INJ (*CRX) 100 MCG/2 ML VIAL 50 MCG IV PUSH (11:30)
[2021-07-26] MEDS: miSOPROStol 200 MCG TABLET 1000 MCG RECTAL (11:41)
--- NOTE | 2021-07-26 11:44 | PM.OBPNVD ---
OB - PN: Subj Subjective Date/time seen: 07/26/21 11:44 Interval history: Called to patients room for hemorrhage. pt had gotten up to use the restroom and pasted several large clots. Per RN exam there were more clots noted in the lower uterine segment. Pt had received fentanyl and was getting IVF bolus. 1000 mcg of cytotec was placed rectally. BSUS was performed and there was a good endometrial stripe. No active bleeding was noted at the time. OB - PN: Obj Data Labs CBC & Chem 7: 07/26/21 06:47 Labs: Laboratory Results - last 24 hr 07/26/21 07/26/21 06:47 06:47 WBC 9.6 RBC 3.80 L Hgb 11.3 L Hct 34.8 L MCV 91.6 MCH 29.7 MCHC 32.5 RDW 15.9 H Plt Count 200 MPV 10.5 H Immature Gran % (Auto) 0.7 H Neut % (Auto) 76.2 H Lymph % (Auto) 15.2 L [place] % (Auto) 7.2 Eos % (Auto) 0.5 Baso % (Auto) 0.2 Lymph # (Auto) 1.45 [place] # (Auto) 0.7 H Eos # (Auto) 0.1 Baso # (Auto) 0.0 Abs Immat Gran (auto) 0.07 H Absolute Neuts (auto) 7.3 H Absolute Nucleated RBC 0.0 Nucleated RBC % 0.0 Blood Type O Positive Antibody Screen Negative OB - PN A/P Plan Comments: hemorrhage EBL of 475 mL pt received IVF with pitocin, cytotec, and methergine will continue methergine x 24 hr continue to monitor. Time Spent With Patient Time: Total time spent is greater than 50% in coordination of care (as documented) at patient's floor/unit and/or counseling patient:
[2021-07-26] MEDS: METHYLERGONOVINE MALEATE 0.2 MG/ML VIAL IM (11:46)
--- NOTE | 2021-07-26 13:10 | OBPPTRN ---
Addendum entered by Amy Zuniga RN 07/26/21 14:48: Pt. arrived on floor at 1320 not 1310 Original Note: Patient transferred to post room #282 via wheelchair. Baby present but no Support person present. Patient states dad went home to take care of other children Oriented to unit, room, information board, rooming in, admission packet and security measures. Patient verbalizes understanding.
[2021-07-26] MEDS: IBUPROFEN 600 MG TABLET PO (20:17)
[2021-07-26] MEDS: METHYLERGONOVINE MALEATE 0.2 MG TABLET PO (20:17)
[2021-07-26] MEDS: ACETAMINOPHEN 325 MG TABLET 650 MG PO (20:17)
[2021-07-27 00:25] VITALS: BP 104/50; PULSE 78; RESP 16; TEMP 36.7; O2SAT 100
[2021-07-27 04:00] VITALS: BP 113/46; PULSE 66; RESP 16; TEMP 36.4; O2SAT 100
[2021-07-27] MEDS: IBUPROFEN 600 MG TABLET PO (04:03)
[2021-07-27] MEDS: METHYLERGONOVINE MALEATE 0.2 MG TABLET PO ×2 (04:03→11:05)
[2021-07-27 05:35] LABS: Hematocrit 30.4 % (37.0-47.0); Hemoglobin 9.6 g/dL (12.0-15.0)
[2021-07-27 06:30] LABS: Rapid Plasma Reagin Non-Reactive (NonReactive)
--- NOTE | 2021-07-27 07:43 | PM.OBDSVD ---
DS: Admitting Diagnosis Discharge Date 07/27/21 Admitting Diagnosis intrauterine at term obesity in short interval history of hemorrhage OB - DS: Summary OB Procedures : None OB Procedures Intrapartum: Spontaneous Vag Delivery OB Procedures: : None Peripartum Data complications: uterine atony and other ( hemorrhage ) Status at Discharge Functional status at discharge: independent ambulation Overall status at discharge: patient is back to baseline Time Spent with Patient Time attestation: Total time spent providing and/or coordinating discharge services: Time spent: Less than 30 minutes Exam Const: General: comfortable and no acute distress Resp: Effort & Inspection: normal respiratory effort Auscultation: clear to auscultation bilaterally Cardio: Rate: regular rate GI: GI Palp: Yes Soft to palpation Auscultation: normal bowel sounds Other: Fundus firm below umbilicus Psych: Appearance: grossly normal Mental Status: mental status grossly normal Affect: normal affect DS: Data Data Completed and Pending Labs on day of discharge: Labs from last 24 hours 07/27/21 07/26/21 07/26/21 04:15 06:47 06:47 Hgb 9.6 L Hct 30.4 L RPR Non-reactive Blood Type O Positive Antibody Screen Negative Discharge Plan Discharge Discharging Clinician: Fco Lange Patient Disposition: Home, Self-Care Activity: as tolerated and pelvic rest Diet: regular Patient Instructions: Antibiotic Form, Vaginal Delivery (DC) Stand Alone Forms: General Discharge Information Follow-up/Referrals: Fco Lange MD [Physician] - 6 Weeks Discharge Medications: New polysaccharide iron complex 150 mg iron Capsule 150 mg PO BIDWM Qty: 60 RF: 0 acetaminophen [Mapap (acetaminophen)] 325 mg Tablet 650 mg PO Q6H PRN (Reason: Mild Pain (1-3) Or Headache) Qty: 30 RF: 0 ibuprofen 600 mg Tablet 600 mg PO Q6H PRN (Reason: Cramping) Qty: 30 RF: 0 Continued PNV cmb#95-ferrous fumarate-FA [] 28 mg iron- 800 mcg Tablet 1 tablet PO DAILY RF: 0 Date of admission: 07/26/21 05:54 Primary Care Provider: Craig Ricardo Admitting Provider: Fco Lange Attending physician on admission: Fco Lange Condition: Stable
[2021-07-27 08:30] VITALS: BP 111/64; PULSE 73; RESP 18; TEMP 36.2; O2SAT 100
[2021-07-27] MEDS: DOCUSATE SODIUM 100 MG CAPSULE PO (09:09)
[2021-07-27] MEDS: POLYSACCHARIDE IRON COMPLEX 150 MG CAPSULE PO (09:10)
[2021-07-27] MEDS: MULTIVIT/MIN/PREN/FOL AC/IRON TABLET 1 TAB PO (09:10)
[2021-07-27] MEDS: MEASLES,MUMPS,RUBELLA VACCINE 0.5 ML VIAL SUB-Q (09:10)
== END 2021-07-27 12:06 | disposition home or self-care (01) | DRG 560 ==
LOC: ANHLDR 05:57 → ANHOB2 13:21
PROVIDERS: Admitting Provider Student in an Organized Health Care Education/Training Program; PCP Emergency Medicine; Visit Provider Student in an Organized Health Care Education/Training Program
DX: O62.3 Precipitate labor (principal); O76 Abnormality in fetal heart rate and rhythm complicating labor and delivery; O70.0 First degree perineal laceration during delivery; O99.284 Endocrine, nutritional and metabolic diseases complicating childbirth; E72.12 Methylenetetrahydrofolate reductase deficiency; O99.214 Obesity complicating childbirth; O72.1 Other immediate postpartum hemorrhage; Z3A.39 39 weeks gestation of pregnancy; Z37.0 Single live birth
CPT/HCPCS: 36415; 85014; 85018; 85025; 86592; 86850; 86900; 86901; 90710; A9270; J2210; J2590; J3010; J7120

== ENCOUNTER 2021-08-01 14:09 | Outpatient (RCR) | payer OTHER, SELFPAY ==
--- NOTE | 2021-08-01 15:42 | PC.NURSE ---
In- 1409 Out- 1516 Reason for visit: Latch issues History: Mother G 3 P2 delivered at [place] 39 weeks EGA. Augmented with AROM and Pitocin. Mother denies an epidural and states she has had PPH with each of her deliveries and this one wasn't as bad. QBL charted was 300. Her milk came in on day 5, which was yesterday 07/31/21. Medical history includes ADHD, Asthma, GERD, MTHFR, obesity, PCOS, and various vaginal infections. She states that the infant latched with a nipple shield at the first attempt with RN assistance, then breastfed fine after that with no nipple shield. No other breastfeeds while she was admitted were assessed. History: 5 days old today, appears normal for race, and well nourished. The last visit was 07/31/[address] Laurent's office. Mother states there are no concerns. Intake, output, and weight are good. Observations: Mother works well with her infant. Breast are not red and are without injury. Infant shows feeding cues when skin to skin on mother's chest vertically between her breast, then when moved to football position starts to cry. On a rare moment would attempt to latch to the breast ineffectively with a shallow latch. Infant holds his tongue to the roof of his mouth at rest and when crying. weight: 8-8.5 07/26/21 Lowest weight: 7-15.7 follow up visit at [facility] Last weight: 8-6 07/31/21 at the travel writer's office Plan of Care: Mother is going to watch for early feeding cues and place skin to skin before infant becomes frantic and hungry. Watching for REM to begin working with often during the daytime. It was suggested to train the tongue in a down position with a pacifier, then take it out and attempt to latch infant when feeding cues are visualized. Mother also has a nipple shield at home to use as a tool to work with baby from bottle and pacifier to breast. A suggestion was made to pump breast for 1-2 min, then attempt infant to the breast. Risk and benefits were discussed regarding using a nipple shield. Mother's milk is in and she pumps every 3 hours at least once at night. Reviewed engorgement and infection prevention. Mother voiced understanding of information and education. Follow up plans: There will be a follow up phone call to check-in on progress in the next 1-2 days. Mother has a weight check appt for baby with Dr. Laurent next week.
== END 2021-09-25 09:15 | disposition home or self-care (01) ==
LOC: ANHOBOP 14:09
PROVIDERS: PCP Emergency Medicine; Visit Provider Pediatrics Adolescent Medicine
DX: Z39.1 Encounter for care and examination of lactating mother (principal)
CPT/HCPCS: 99213; G0463

== ENCOUNTER 2021-12-27 09:15 | Emergency (ER) | payer OTHER, SELFPAY ==
[2021-12-27 09:23] VITALS: BP 112/70; PULSE 100; RESP 16; TEMP 37.3; O2SAT 100
--- NOTE | 2021-12-27 09:54 | ED.URI ---
HPI - URI/Sore Throat General Chief Complaint: Upper Respiratory Infection Stated Complaint: sore throat Time Seen by Provider: 12/27/21 10:00 Source: patient and RN notes reviewed Mode of arrival: ambulatory Limitations: no limitations History of Present Illness HPI Narrative: 26-year-old female presents with concern for sore throat, nasal congestion, rhinorrhea, body aches that started yesterday. Reports her children are sick with similar symptoms and have had negative COVID test. She reports she took a multisymptom cold medicine without relief of her sinus congestion. She denies nausea, vomiting, diarrhea, fever, chills, sweats, shortness of breath, cough MD elicited complaint: sore throat and nasal congestion Related Data Allergies Allergy/AdvReac Type Severity Reaction Status Date / Time latex Allergy Intermediate Itching Verified 12/27/21 09:32 Penicillins Allergy Intermediate Hives / Verified 07/03/21 15:21 Red Face Review of Systems Review of Systems: CONSTITUTIONAL: Reports malaise. Denies chills, sweats, or fever. EYES: Denies visual changes, redness, or discharge. ENT: Reports rhinorrhea, congestion, and sore throat. Reports sinus pain, otalgia CARDIOVASCULAR: Denies chest pain, palpitations, or edema. RESPIRATORY: Denies cough. Denies dyspnea. GASTROINTESTINAL: Denies abdominal pain, nausea, vomiting, diarrhea SKIN: Denies rash or itching. MUSCULOSKELETAL: Reports myalgia. NEUROLOGIC: Denies headache. All systems reviewed & are unremarkable except as noted in HPI and below PMFSH Past Medical History Medical History (Updated 12/27/21 @ 10:06 by Jyotsna Menezes NP) ADHD Asthma Bacterial vaginosis Candidiasis of female genitalia GBS carrier GERD (gastroesophageal reflux disease) MTHFR mutation (methylenetetrahydrofolate reductase) Obesity Trichomonas vaginalis (TV) infection Vaginal delivery 01/12/20151393 hrs.8 lbs.4 oz.FStandard Vaginal DeliveryFull [facility] Surgical History Surgical History (Updated 06/22/20 @ 00:56 by Ciro Peoples MD) History of tonsillectomy S/p bilateral myringotomy with tube placement Family History Family History Father Bone cancer Social History Social History (Updated 06/22/20 @ 00:56 by Ciro Peoples MD) Smoking status: Never smoker Second hand tobacco smoke exposure: Yes Alcohol intake: never Substance use: never Substance use type: does not use Gender identity (if verbalized by the patient): Female Sexual Orientation (if Verbalized by the Patient): Straight or Heterosexual Spiritual care concerns: No Agree to blood products: Yes Comments At time of signature, agree with nursing past medical, surgical, social and family history. There is no relevant family history pertinent to the presenting complaint Exam Narrative: GENERAL: Nontoxic appearing and in no acute distress. HEAD: Normocephalic EYES: PERRLA, conjunctivae clear ENT: Nares clear, turbinates significantly edematous and erythematous, clear discharge. Mucous membranes moist. TM pearly cantrell with dull light reflex bilaterally; no tragal tenderness. Oropharynx erythematous without lesions. Tonsils not enlarged and without exudate, no drooling, no hoarseness, no trismus, uvula midline. NECK: Supple. No lymphadenopathy CHEST: Clear to auscultation, breath sounds equal. No wheezing, rhonchi, rales, or stridor. No respiratory distress, speaks in full sentences. HEART: Regular rate and rhythm. No murmur heard. SKIN: Warm, dry, no rash. NEURO: Alert and oriented x3. PSYCH: Normal mood and affect Course Course Emergency Course: Patient is aware of diagnosis, understands and agrees to treatment plan. Anticipatory guidance given. Patient agrees to follow-up as directed and is aware of reasons to seek care at the emergency department. Portions of this
== END 2021-12-27 10:11 | disposition home or self-care (01) ==
PROVIDERS: Emergency Provider Nurse Practitioner
DX: J06.9 Acute upper respiratory infection, unspecified (principal); J45.909 Unspecified asthma, uncomplicated; K21.9 Gastro-esophageal reflux disease without esophagitis; E72.12 Methylenetetrahydrofolate reductase deficiency
CPT/HCPCS: 87081; 87880; 99213; G0463

== ENCOUNTER 2022-03-14 10:31 | Emergency (ER) | payer OTHER, SELFPAY ==
--- NOTE | ~2022-03-14 | US_ITS ---
Limited Abdominal Sonogram: Real-time sonographic imaging of the right upper quadrant was performed. Clinical History: Abdominal pain Findings: The liver appears mildly echogenic, with no evidence of mass lesion or bile duct dilatatio n. Main portal vein demonstrates normal direction of flow. The gallbladder is well distended, with ec hogenic, shadowing stones or gallbladder neck. No gallbladder wall thickening. The common bile duct m easures 7 mm. The visualized pancreas, aorta, and IVC are unremarkable. Impression: Cholelithiasis. Common bile duct is upper limits of normal in size. Probable fatty infiltration of liver. Reviewed, dictated and finalized at location M. EDITED LEGAL SECRETARY Impression: Cholelithiasis. Common bile duct is upper limits of normal in size. Probable fatty infiltration of liver.
[2022-03-14 10:38] VITALS: BP 119/76; PULSE 79; RESP 14; TEMP 36.4; O2SAT 100
[2022-03-14 11:29] LABS: Basophils Percent Auto 0.5 % (0.2-1.2); Eosinophils Absolute Auto 0.1 K/mm3 (0-0.3); Eosinophils Percent Auto 0.8 % (0-4.4); Hematocrit 39.1 % (37.0-47.0); Hemoglobin 13.4 g/dL (12.0-15.0); Immature Granulocyte Absolute 0.03 K/mm3 (0.00-0.031); Immature Granulocyte Percent A 0.3 % (0-0.5); Lymphocytes Absolute Auto 1.45 K/mm3 (0.9-3.2); Lymphocytes Percent Auto 16.7 % (18.3-44.2); Mean Corpuscular HGB Conc 34.3 g/dl (32-36); Mean Corpuscular Hemoglobin 29.7 pg (26-34); Mean Corpuscular Volume 86.7 fl (80-100); Mean Platelet Volume 10.5 fl (7.4-10.4); Monocytes Absolute Auto 0.6 K/mm3 (0.1-0.6); Monocytes Percent Auto 7.4 % (2.6-8.5); Neutrophils Absolute Auto 6.5 K/mm3 (1.3-6.7); Neutrophils Percent Auto 74.3 % (45.5-73.1); Platelet Count Result 239 k/mm3 (150-375); Red Blood Count 4.51 M/mm3 (4.2-5.4); White Blood Count 8.7 K/mm3 (4.5-10.0)
--- NOTE | 2022-03-14 11:37 | ED.ABDPAIN ---
HPI - Abdominal Pain General Chief Complaint: Abdominal Pain <SOUMYA Yan Last Filed: 03/14/22 14:38> Stated Complaint: RUQ ABD/RIB PAIN <SOUMYA Yan Last Filed: 03/14/22 14:38> Time Seen by Provider: 03/14/22 10:42 <SOUMYA Yan Last Filed: 03/14/22 14:38> Source: patient <SOUMYA Yan Last Filed: 03/14/22 14:38> Mode of arrival: ambulatory <SOUMYA Yan Last Filed: 03/14/22 14:38> Limitations: no limitations <SOUMYA Yan Last Filed: 03/14/22 14:38> History of Present Illness HPI narrative: Patient is a 26-year-old female who presents the ED with report of right upper quadrant abdominal pain. Patient reports she developed pain around 3 AM this morning which has been persistent and constant since then. She has tried taking ibuprofen and Tylenol without relief. Denies any alleviating factors. She has never had pain like this before. Denies history of gallbladder disease. Denies fever, nausea, vomiting, constipation, diarrhea, urinary symptoms. Last bowel movement this morning. <SOUMYA Yan Last Filed: 03/14/22 14:38> Related Data Allergies/Adverse Reactions: Allergies Allergy/AdvReac Type Severity Reaction Status Date / Time latex Allergy Intermediate Itching Verified 03/14/22 10:32 Penicillins Allergy Intermediate Hives / Verified 03/14/22 10:32 Red Face <SOUMYA Yan Last Filed: 03/14/22 14:38> Review of Systems Review of Systems: CONSTITUTIONAL: Denies fever, chills, or sweats. EYES: Denies visual changes. ENT: Denies rhinorrhea, congestion, sore throat. CARDIOVASCULAR: Denies chest pain. RESPIRATORY: Denies dyspnea. GASTROINTESTINAL: Reports RUQ abdominal pain. Denies nausea, vomiting, constipation, or diarrhea. GENITOURINARY: Denies dysuria or hematuria. SKIN: Denies rash or itching. MUSCULOSKELETAL: Denies back pain, joint pain, or myalgia. NEUROLOGIC: Denies headache, numbness, or weakness. <Joleen Valdovinos PA-C - Last Filed: 03/14/22 14:38> All systems reviewed & are unremarkable except as noted in HPI and below <Joleen Valdovinos PA-C - Last Filed: 03/14/22 14:38> [facility] Past Medical History Medical History: Medical History ADHD Asthma Bacterial vaginosis Candidiasis of female genitalia GBS carrier GERD (gastroesophageal reflux disease) MTHFR mutation (methylenetetrahydrofolate reductase) Obesity Trichomonas vaginalis (TV) infection Vaginal delivery 01/12/20151393 hrs.8 lbs.4 oz.FStandard Vaginal DeliveryFull Term [facility] <Joleen Valdovinos PA-C - Last Filed: 03/14/22 14:38> Surgical History Surgical History: Surgical History History of tonsillectomy S/p bilateral myringotomy with tube placement <Joleen Valdovinos PA-C - Last Filed: 03/14/22 14:38> Family History Family History: Family History Father Bone cancer <SOUMYA Yan Last Filed: 03/14/22 14:38> Social History Social History: Social History Smoking status: Never smoker Second hand tobacco smoke exposure: Yes Alcohol intake: never Substance use: never Substance use type: does not use Gender identity (if verbalized by the patient): Female Sexual Orientation (if Verbalized by the Patient): Straight or Heterosexual Spiritual care concerns: No Agree to blood products: Yes <SOUMYA Yan Last Filed: 03/14/22 14:38> Exam Narrative: GENERAL: Well appearing, morbidly obese, non-toxic, in mild acute distress. HEAD: Normocephalic, atraumatic. NECK: Supple. No adenopathy, no masses. RESPIRATOR
[2022-03-14 11:40] LABS: Add Urine Microscopic? YES; Appearance Urine Slightly Cloudy (Clear); Bilirubin Urine Negative (Negative); Blood Urine 2+ (Negative); Color Urine Yellow (Yellow); Glucose Urine UA Negative (Negative); Ketones Urine Negative (Negative); Leukocyte Esterase Ur Negative LEU/UL (Negative); Nitrate Urine Negative (Negative); Protein Urine 2+ mg/dL (Negative); Urobilinogen Urine 0.2 mg/dL (<2.0); pH Urine >=9.0 (5.0-9.0)
[2022-03-14 11:43] LABS: Alanine Aminotransferase 25 U/L (6-35); Albumin Level 4.1 g/dL (3.5-5.1); Alkaline Phosphatase 99 U/L (38-126); Anion Gap 6 mmol/L (8-16); Aspartate Amino Transferase 25 U/L (14-36); Bilirubin,Total 0.2 mg/dL (0.2-1.3); Blood Urea Nitrogen 11 mg/dL (7-17); Calcium 8.3 mg/dL (8.4-10.2); Carbon Dioxide 29 mmol/L (22-30); Chloride 98 mmol/L (98-107); Estimated CRCL calculation 170 ml/min; Estimated Glomerular Filt Rate > 60; Glucose 103 mg/dL (65-110); Lipase 55 U/L (23-300); Potassium 3.5 mmol/L (3.4-5.0); Sodium 133 mmol/L (137-145)
[2022-03-14 11:47] LABS: Bacteria Urine Trace /hpf; Mucus Urine Rare /lpf; RBC Urine 51-75 /hpf (0-2); Squamous Epithelial Cell Urine Many /hpf (Few)
[2022-03-14] MEDS: ONDANSETRON INJ 4 MG/2 ML VIAL IV PUSH (11:52)
[2022-03-14] MEDS: MORPHINE SULFATE (*CRX) 4 MG/ML INJ IV PUSH (11:52)
[2022-03-14 14:58] VITALS: BP 120/73; PULSE 78; RESP 18; O2SAT 100
--- NOTE | 2022-03-14 15:32 | PM.CNGS ---
Assessment and Plan Assessment and plan (1) Cholelithiasis: Qualifiers: Biliary obstruction: without biliary obstruction Cholecystitis presence: without cholecystitis Cholelithiasis location: gallbladder Qualified Code(s): K80.20 - Calculus of gallbladder without cholecystitis without obstruction Code(s): K80.20 - Calculus of gallbladder without cholecystitis without obstruction Status: Acute Assessment and Plan: exam benign after treatment in ED, ok to dc home on low fat diet, f/u as outpt to schedule interval cholecystectomy History of Present Illness Consult details Consult date: 03/14/22 Reason for consult: abdominal pain Requesting physician: Frankie Galan MD Narrative: The patient is a 26-year-old female presenting to the emergency department complaining of severe right upper quadrant abdominal pain. The patient reports the pain awoke her from sleep at 3:00 a.m. this morning. The patient reports the pain has been severe and constant since that time. Patient reports some associated nausea and bloating. The patient previous similar episodes. Review of Systems Constitutional: Constitutional: Reports as per HPI, Reports anorexia, Denies chills, Denies fatigue, Denies fever(s), Denies lethargy, Reports malaise, Reports poor appetite, Denies weakness, Denies weight gain and Denies weight loss Eyes: Eyes: Reports no additional eye complaints ENT: Reports system reviewed and no additional complaints, except as documented Cardiovascular: Cardiovascular: Reports no additional cardiovascular complaints Respiratory: Respiratory: Reports no additional respiratory complaints Gastrointestinal: Gastrointestinal: Reports as per HPI, Reports abdominal pain, Reports bloating, Reports GI cramping, Reports heartburn, Reports nausea and Denies vomiting Genitourinary: Genitourinary: Reports no additional female genitourinary complaints Musculoskeletal: Musculoskeletal: Reports no additional musculoskeletal complaints Integumentary/Breasts: Skin/Breast: Reports system reviewed and no additional complaints, except as docu Neurologic: Reports system reviewed and no additional complaints, except as documented Psychiatric: Psychiatric: Reports no additional psychiatric complaints Endocrine: Endocrine: Reports no additional endocrine complaints Hematologic/Lymphatic: Hematologic/Lymphatic: Reports no additional hematologic/lymphatic complaints Allergic/Immunologic: Allergic/Immunologic: Reports no additional allergic/immunologic complaints PMFSH Past Medical History Medical History ADHD Asthma Bacterial vaginosis Candidiasis of female genitalia GBS carrier GERD (gastroesophageal reflux disease) MTHFR mutation (methylenetetrahydrofolate reductase) Obesity Trichomonas vaginalis (TV) infection Vaginal delivery 01/12/20151393 hrs.8 lbs.4 oz.FStandard Vaginal [facility]Full [facility] Surgical History Surgical History History of tonsillectomy S/p bilateral myringotomy with tube placement Family History Family History Father Bone cancer Social History Social History Smoking status: Never smoker Second hand tobacco smoke exposure: Yes Alcohol intake: never Substance use: never Substance use type: does not use Gender identity (if verbalized by the patient): Female Sexual Orientation (if Verbalized by the Patient): Straight or Heterosexual Spiritual care concerns: No Agree to blood products: Yes Meds Home Medications and Allergies Home Medications Medication Instructions Recorded Confirmed Type hydrocodone 5 mg-acetaminophen 325 1 tablet PO Q6H PRN pain #15 tabs 03/14/22 Rx mg tablet onda
== END 2022-03-14 15:00 | disposition home or self-care (01) ==
PROVIDERS: Emergency Provider Emergency Medicine; PCP Emergency Medicine
DX: K80.20 Calculus of gallbladder without cholecystitis without obstruction (principal); J45.909 Unspecified asthma, uncomplicated; K21.9 Gastro-esophageal reflux disease without esophagitis; E66.9 Obesity, unspecified; Z68.41 Body mass index [BMI] 40.0-44.9, adult
CPT/HCPCS: 36415; 76705; 80053; 81001; 81025; 83690; 85025; 87086; 96374; 96375; 99284; J2270; J2405

== ENCOUNTER 2022-03-26 01:01 | Day surgery (SDC) | payer OTHER, SELFPAY ==
[2022-03-20 15:48] VITALS: BMI 43.4
--- NOTE | 2022-03-20 15:52 | PC.NURSE ---
Report to the Outpatient Waiting Room, entrance under the green pavilion located off [facility], at time 1030 on date 03/26/22. Planned Procedure Time: 1230. Time changes happen often and if your time is changed the preop area will call you the afternoon before. - You and your visitor will be asked to self-screen and do not enter if you have any COVID symptoms. - Only one visitor is requested with a max of two and NO children visitors are allowed at this time. - The patient visitor may be requested to leave or wait in car when not with patient due to distancing restrictions. - A mask is REQUIRED within the hospital. Patients may have clear liquids (water, carbonated beverages, clear teas, apple juice) until 3 hours prior to surgery with a maximum of 20 ounces. - No food from midnight until time of surgery Take the following medications with a SIP of water the morning of surgery: PAIN PILL IF NEEDED Medications to discontinue per physician: N/A Date to take last dose: N/A Please no make-up, nail estonian, hairspray, perfume, deodorant, or body powder the day of surgery. No jewelry (including any body piercings) or valuables the day of surgery, leave them at home. Please take a shower or bath the night before, or the morning of, surgery with an antibacterial soap (HIBICLENS). Wear comfortable, loose fitting clothing. - Jewelry must be removed prior to entering the operating room. Rings and piercings that are not removed may be cut off. - The hospital will not accept responsibility for valuables. - Please leave all valuables, including medications, at home the day of surgery. If you are going home after surgery, a licensed truck driver teamster must drive you home. - NO public transportation without another adult if you receive anesthesia. - We recommend that an adult stay with you for 24 hours following discharge. - We also recommend that you do not drive, make important decision, drink alcoholic beverages, or take any drugs that were not prescribed by your health care provider for at least 24 hours after your discharge time. Follow any additional instructions given to you from your surgeon. If you or anyone in your household have experienced Covid symptoms in the past week, please notify your surgeon or the nurse liaison at the phone number below for possible testing. Telephone instructions given to PT - ANGELY CUNNINGHAM and asked if any additional questions and then verbalized understanding. Patient advised to call surgeon office or pre surgery nurse liaison [phone] if any additional questions.
[2022-03-26] VITALS (9 sets, daily range): BP systolic 105–146; BP diastolic 49–78; PULSE 58–106; RESP 12–25; TEMP 36.1–36.8; O2SAT 94–100; BMI 42.7
[2022-03-26] MEDS: LACTATED RINGERS 1,000 ML 30 ML IV CONT ×3 (12:07→17:26)
[2022-03-26] MEDS: INDOCYANINE GREEN 25 MG VIAL IV PUSH (12:09)
[2022-03-26] MEDS: ACETAMINOPHEN 500 MG TABLET 1000 MG PO (12:14)
[2022-03-26] MEDS: KETOROLAC 15 MG/ML VIAL (*BKC) IV PUSH (12:14)
[2022-03-26 12:21] LABS: Amylase 57 U/L (30-110)
--- NOTE | 2022-03-26 13:27 | WPDHPUPDATE1 ---
History and Physical Update Update Date/Time: 03/26/22 13:27 History and Physical has been reviewed, including an updated exam of the patient. There are NO changes in the patient's condition. Risks, benefits, and alternatives have been discussed and questions answered. Patient agrees to proceed with procedure. DaVinci Robot not available in a timely fashion to use for lap guerrero. Discussed with patient and she is ok with proceeding with traditional laparoscopic cholecystectomy, possible open today.
--- NOTE | 2022-03-26 13:35 | P.PNAN_ITS ---
Anes - Initial Pre Proc Eval Procedure: Operation Date: 03/26/22 13:30 Proposed Procedures p Robotic Assisted Laparoscopic Cholecystectomy, Possible Open - Mukesh Soliz MD Date/Time: 03/26/22 13:35 Surgeon: Mukesh Soliz MD Pre Op Diagnosis: chronic cholecystitis secondary to gallstones Patient Data Age: 26 Gender: F Height: 1.6 m Weight: 109.6 kg Allergies Allergy/AdvReac Type Severity Reaction Status Date / Time latex Allergy Intermediate Itching Verified 03/26/22 11:50 Penicillins Allergy Intermediate Hives / Verified 03/26/22 11:50 Red Face Home Medications Medication Instructions Recorded Confirmed Type hydrocodone 5 mg-acetaminophen 325 1 tablet PO Q6H PRN pain #15 tabs 03/14/22 03/20/22 Rx mg tablet ondansetron 4 mg disintegrating 4 mg PO Q8H PRN nausea and 03/14/22 03/20/22 Rx tablet vomiting #20 tabs Laboratory Tests 03/26/22 03/26/22 12:05 12:05 Amylase 57 U/L U/L (30-110) Blood Type O Positive Antibody Screen Negative Patient hx anesthesia problems: none Family hx anesthesia problems: none Results Review: All pre-operative results and documents have been reviewed as part of the pre- operative evaluation. [facility] Past Medical History Medical History ADHD Asthma Bacterial vaginosis Candidiasis of female genitalia GBS carrier GERD (gastroesophageal reflux disease) MTHFR mutation (methylenetetrahydrofolate reductase) Obesity Trichomonas vaginalis (TV) infection Vaginal delivery 01/12/20151393 hrs.8 lbs.4 oz.FStandard Vaginal DeliveryFull [facility] Surgical History Surgical History History of tonsillectomy S/p bilateral myringotomy with tube placement Family History Family History Father Bone cancer Social History Social History Smoking status: Never smoker Second hand tobacco smoke exposure: Yes Alcohol intake: never Substance use: never Substance use type: does not use Living arrangements: with family Gender identity (if verbalized by the patient): Female Sexual Orientation (if Verbalized by the Patient): Straight or Heterosexual Spiritual care concerns: No Agree to blood products: Yes Anes - Eval Final PreProcedure Day of Procedure 03/26/22 13:35 Patient weight: morbidly obese Heart: regular rate and rhythm Lungs: clear to auscultation Airway: Mallampati scale class II Neurological: alert and oriented Last oral intake: >/= 8 hours ASA classification: III Emergent: no Anesthetic plan: proceed Anesthesia type and monitoring: general ETT and standard monitoring Results Review: All pre-operative results and documents have been reviewed as part of the pre- operative evaluation. Informed Consent: The patient's anesthetic plan and its attendant risks and benefits were discussed with the patient/family/POA. Questions were solicited and answers provided to the satisfaction of the patient/family/P
[2022-03-26] MEDS: ceFAZolin 2 GM/D5W 50 ML 2 GM/50 ML BAG IVPB (14:06)
[2022-03-26] MEDS: BUPIVACAINE HCL 0.5% PF 30 ML VIAL 15 ML INFILTRATE (14:34)
--- NOTE | 2022-03-26 15:22 | W.PM.PROC2 ---
Procedure Note - Detailed Date of Procedure 03/26/22 Pre-op Diagnosis Chronic cholecystitis secondary to cholelithiasis Post-op Diagnosis Same Procedure Performed Laparoscopic cholecystectomy Surgeon Mukesh Soliz MD Portfolio Assistant Danielle KIM Anesthesia General Indications Patient 26-year-old female who presented with mid episodes of right upper quadrant abdominal pain associated nausea. Abdominal ultrasound showed cholelithiasis without evidence acute cholecystitis. Findings Single gallstone and minimal thickening of the gallbladder wall no evidence of acute cholecystitis, no adhesions to the gallbladder Description of Procedure After informed consent was obtained the patient brought to the operating room she is placed in supine position and general endotracheal anesthesia was administered. The abdomen was then prepped and draped in usual sterile fashion. A time-out was then performed correctly identifying the patient as well as the procedure to be performed and verified that she was given perioperative IV antibiotics. Then gained access into the abdomen by placing a 5millimeter Opti port in the left upper quadrant and a direct optical insertion. Once inside the abdomen insufflated to an adequate pneumoperitoneum of 15millimeters of mercury CO2. I then placed a 5millimeter Optiview port at the umbilicus under direct visualization. The laparoscope was then switched to the umbilical port site and then looking into the right upper quadrant of the abdomen I placed an epigastric 10millimeter trocar port and 2 right lateral subcostal 5millimeter trocar ports all under direct visualization. The gallbladder was visualized and the wall was minimally thickened without evidence of acute cholecystitis. There were no adhesions of the omentum, stomach, or duodenum to the gallbladder. The gallbladder was held with a laparoscopic grasper at the dome and elevated over the right half of the liver towards the right shoulder. Second grasper is then used to hold the gallbladder at the infundibulum and then with lateral traction I continued my dissection of the visceroperitoneum off of the infundibulum of the gallbladder until I identified the cystic duct. The cystic duct was then dissected out circumferentially. The cystic artery was in its usual position posterior medial to the cystic duct. It was then dissected out circumferentially and the lower 1/3 of the gallbladder at the infundibulum was dissected off of the liver plate. I then had the critical view and then placed 2 clips proximally on the cystic duct and 2 clips distally on the infundibulum of the gallbladder. In a similar fashion the cystic artery was clipped and divided as well. The gallbladder was then resected off the liver utilized electric cautery without spilling any bile or gallstones. Once the gallbladder was free from the liver it was placed into a Endo-Catch bag and brought out through the epigastric port site. The gallbladder and contents was sent to pathology for examination. I then irrigated out the right upper quadrant of the abdomen and the gallbladder fossa with saline solution and hemostasis was excellent. I then aspirated the fluid from the right upper quadrant and the pelvis and then removed all the trocar ports under direct visualization and all the port sites appeared hemostatic. I then irrigated out the avery sterile saline solution and then closed the 10millimeter epigastric trocar port fascial defect with a 0 Vicryl suture placed in a [id number] fashion. I then closed all the port sites at the skin level utilizing a running subcuticular 4 0 Monocryl suture. The Incisions were then cleaned and then skin glue was used on the incisions. The patient tolerated the procedure well and there no complications. All sponges needles and instrument counts are correct at the end of procedure. Estimated blood loss procedure was 20cc. The patient was awakened, extubated, and taken to recovery
--- NOTE | 2022-03-26 16:00 | SUR.PHASEI ---
1558: Simple mask removed.
[2022-03-26] MEDS: ONDANSETRON INJ 4 MG/2 ML VIAL IV PUSH (16:03)
[2022-03-26] MEDS: fentaNYL CITRATE INJ (*CRX) 100 MCG/2 ML VIAL 25 MCG IV PUSH (16:05)
[2022-03-26] MEDS: SCOPOLAMINE 1.5 MG PATCH TRANSDERM (16:49)
[2022-03-26] MEDS: HALOPERIDOL LACTATE 5 MG/ML VIAL 1 MG IV PUSH (16:49)
== END 2022-03-26 18:05 | disposition home or self-care (01) ==
PROVIDERS: PCP Emergency Medicine; Visit Provider Surgery
PROC: 0FT44ZZ Resection of Gallbladder, Percutaneous Endoscopic Approach (ICD-10-PCS; CPT 47562; principal; 2022-03-26 13:30)
DX: K80.10 Calculus of gallbladder with chronic cholecystitis without obstruction (principal); E72.12 Methylenetetrahydrofolate reductase deficiency; E66.01 Morbid (severe) obesity due to excess calories; Z68.41 Body mass index [BMI] 40.0-44.9, adult
CPT/HCPCS: 47562; 36415; 82150; 86850; 86900; 86901; 88304; A9270; J0330; J0690; J1100; J1630; J1885; J2250; J2405; J2704; J2710; J3010; J7120

== ENCOUNTER 2023-02-21 15:10 | Emergency (ER) | payer OTHER, SELFPAY ==
[2023-02-21 15:18] VITALS: BP 126/72; PULSE 103; RESP 18; TEMP 36.7; O2SAT 100
--- NOTE | 2023-02-21 15:33 | ED.URI ---
HPI - URI/Sore Throat General Chief Complaint: Ear Stated Complaint: Right Ear/Sinus Time Seen by Provider: 02/21/23 15:28 Source: patient and RN notes reviewed Mode of arrival: ambulatory Limitations: no limitations History of Present Illness HPI Narrative: Patient presents today complaining of nasal congestion x1 week with right ear pain that started today. Denies cough, sore throat, fever, or any additional symptoms. She currently rates her pain 4/10 and took 1 dose of Priyanka-Reed last night without much relief. Related Data Allergies Allergy/AdvReac Type Severity Reaction Status Date / Time latex Allergy Intermediate Itching Verified 02/21/23 15:13 Penicillins Allergy Intermediate Hives / Verified 02/21/23 15:13 Red Face Review of Systems Review of Systems: CONSTITUTIONAL: Denies body aches, fever, chills, or sweats. EYES: Denies visual changes, redness, or discharge. ENT: Denies rhinorrhea, sore throat. + right ear pain, congestion CARDIOVASCULAR: Denies chest pain, palpitations, or edema. RESPIRATORY: Denies cough or dyspnea. GASTROINTESTINAL: Denies abdominal pain, nausea, vomiting, or diarrhea. GENITOURINARY: Denies dysuria or hematuria. SKIN: Denies rash, itching, or wounds. MUSCULOSKELETAL: Denies back pain, joint pain, or myalgia. NEUROLOGIC: Denies headache, numbness, tingling, or weakness. PSYCH: Denies depression or anxiety. [facility] Past Medical History Medical History ADHD Asthma Bacterial vaginosis Candidiasis of female genitalia GBS carrier GERD (gastroesophageal reflux disease) MTHFR mutation (methylenetetrahydrofolate reductase) Obesity Trichomonas vaginalis (TV) infection Vaginal delivery 01/12/20151393 hrs.8 lbs.4 oz.FStandard Vaginal DeliveryFull [facility] Surgical History Surgical History History of tonsillectomy S/p bilateral myringotomy with tube placement S/P laparoscopic cholecystectomy 03/26/22 Family History Family History Father Bone cancer Social History Social History Smoking status: Never smoker Second hand tobacco smoke exposure: Yes Alcohol intake: never Substance use: never Substance use type: does not use Living arrangements: with family Occupation/Education: occupation Gender identity (if verbalized by the patient): Female Sexual Orientation (if Verbalized by the Patient): Straight or Heterosexual Spiritual care concerns: No Agree to blood products: Yes Comments At time of signature, I have reviewed and agree with nursing past medical, surgical, social and family history unless otherwise noted. Please see nursing chart for further information. There is no relevant family history pertinent to the presenting complaint Exam Narrative: GENERAL: Well-appearing, well-nourished, and in no acute distress. HEAD: Normocephalic, atraumatic. EYES: EOMI. No redness or drainage. Conjunctivae normal. ENT: Mucous membranes pink and moist. Nares severely congested. No rhinorrhea. Left TM normal. Right TM erythematous. Both TMs are scarred from previous tube placement. Throat normal. Uvula midline. NECK: Normal AROM. Supple. No lymphadenopathy. CHEST: No respiratory distress. Clear to auscultation. HEART: Regular rate and rhythm. No murmur appreciated. EXTREMITIES: Normal range of motion. No edema. SKIN: Warm, dry, no rash. Capillary refill normal. Normal skin turgor. NEURO: No focal deficits. Alert and oriented x3. Gait steady. PSYCH: Normal affect. No signs of depression or anxiety. Course Course Level of Care: Express Care Visit Vital Signs Vital signs: Vital Signs Temperature 98.1 F 02/21/23 15:18 Pulse Ra
== END 2023-02-21 15:38 | disposition home or self-care (01) ==
PROVIDERS: Emergency Provider Nurse Practitioner; PCP Emergency Medicine
DX: H66.91 Otitis media, unspecified, right ear (principal); J06.9 Acute upper respiratory infection, unspecified
CPT/HCPCS: 99213; G0463

== ENCOUNTER 2023-03-07 09:25 | Emergency (ER) | payer OTHER, SELFPAY ==
[2023-03-07 09:52] VITALS: BP 104/71; PULSE 109; RESP 12; TEMP 37.8; O2SAT 97
--- NOTE | 2023-03-07 10:30 | ED.GENADULT ---
HPI - General Adult General Chief complaint: Abdominal Pain Stated complaint: Abdominal Pain Time Seen by Provider: 03/07/23 10:04 Source: patient and RN notes reviewed Mode of arrival: ambulatory Limitations: no limitations History of Present Illness HPI narrative: Patient presents today complaining of nausea, vomiting, diarrhea, and abdominal cramping since last night. Denies fever. States she has had 20 vomiting and diarrhea episodes since onset. Denies blood or mucus in stool. States she has not been able to keep down any fluids since onset of symptoms. She has tried no pnau-srl-uslbelc treatment prior to arrival. Children sick with similar symptoms. Related Data Home Medications Medication Instructions Recorded Confirmed levonorgestrel 20.4 mcg/24 hrs (8 1 device intrauterine ONCE 03/07/23 03/07/23 yrs) 52 mg intrauterine device (Liletta) Allergies Allergy/AdvReac Type Severity Reaction Status Date / Time latex Allergy Intermediate Itching Verified 03/07/23 10:05 Penicillins Allergy Intermediate Hives / Verified 03/07/23 10:05 Red Face Review of Systems Review of Systems: CONSTITUTIONAL: Denies body aches, fever, chills, or sweats. EYES: Denies visual changes, redness, or discharge. ENT: Denies rhinorrhea, congestion, sore throat, or otalgia. CARDIOVASCULAR: Denies chest pain, palpitations, or edema. RESPIRATORY: Denies cough or dyspnea. GASTROINTESTINAL: + nausea, vomiting, diarrhea, abdominal cramping GENITOURINARY: Denies dysuria or hematuria. SKIN: Denies rash, itching, or wounds. MUSCULOSKELETAL: Denies back pain, joint pain, or myalgia. NEUROLOGIC: Denies headache, numbness, tingling, or weakness.+ dizziness PSYCH: Denies depression or anxiety. [facility] Past Medical History Medical History ADHD Asthma Bacterial vaginosis Candidiasis of female genitalia GBS carrier GERD (gastroesophageal reflux disease) MTHFR mutation (methylenetetrahydrofolate reductase) Obesity Trichomonas vaginalis (TV) infection Vaginal delivery 01/12/20151393 hrs.8 lbs.4 oz.FStandard Vaginal DeliveryFull [facility] Surgical History Surgical History History of tonsillectomy S/p bilateral myringotomy with tube placement S/P laparoscopic cholecystectomy 03/26/22 Family History Family History Father Bone cancer Social History Social History Smoking status: Never smoker Second hand tobacco smoke exposure: Yes Alcohol intake: never Substance use: never Substance use type: does not use Living arrangements: with family Occupation/Education: occupation Gender identity (if verbalized by the patient): Female Sexual Orientation (if Verbalized by the Patient): Straight or Heterosexual Spiritual care concerns: No Agree to blood products: Yes Comments At time of signature, I have reviewed and agree with nursing past medical, surgical, social and family history unless otherwise noted. Please see nursing chart for further information. There is no relevant family history pertinent to the presenting complaint Exam Narrative: GENERAL: Ill-appearing, well-nourished, and in no acute distress. HEAD: Normocephalic, atraumatic. EYES: EOMI. No redness or drainage. Conjunctivae normal. ENT: Mucous membranes pink and moist. Nares clear. No rhinorrhea. Throat normal. Uvula midline. NECK: Normal AROM. Supple. No lymphadenopathy. CHEST: No respiratory distress. Clear to auscultation. HEART: Regular rate and rhythm. No murmur appreciated. Normal peripheral pulses. ABDOMEN: Soft, nontender, nondistended, normal active bowel sounds. MUSCULOSKELETAL: No bony tenderness. EXTREMITIES: Normal
[2023-03-07] MEDS: ONDANSETRON HCL ODT 4 MG TABLET 8 MG SUBLINGUAL (10:35)
--- NOTE | 2023-03-07 11:07 | PC.NURSE ---
1105- malay ice given for PO challenge
--- NOTE | 2023-03-07 11:15 | PC.NURSE ---
Able to keep sinhala ice down.
== END 2023-03-07 11:51 | disposition home or self-care (01) ==
PROVIDERS: Emergency Provider Nurse Practitioner; PCP Emergency Medicine
DX: R11.2 Nausea with vomiting, unspecified (principal); R19.7 Diarrhea, unspecified; Z20.822 Contact with and (suspected) exposure to COVID-19; J45.909 Unspecified asthma, uncomplicated; K21.9 Gastro-esophageal reflux disease without esophagitis; E66.9 Obesity, unspecified; Z68.41 Body mass index [BMI] 40.0-44.9, adult; E72.12 Methylenetetrahydrofolate reductase deficiency
CPT/HCPCS: 87426; 87804; 99213; A9270; C9803; G0463

== ENCOUNTER 2023-07-09 10:46 | Emergency (ER) | payer OTHER, SELFPAY | END 2023-07-09 13:28 | disposition left against medical advice (07) | LOC: ANHED 13:26 | PROVIDERS: PCP Emergency Medicine | DX: K04.7 Periapical abscess without sinus (principal) | CPT/HCPCS: 99199 ==

== ENCOUNTER 2023-07-13 11:08 | Emergency (ER) | payer OTHER, SELFPAY ==
[2023-07-13 11:18] VITALS: BP 114/59; PULSE 95; RESP 18; TEMP 36.3; O2SAT 100
--- NOTE | 2023-07-13 11:18 | ED.DENTAL ---
HPI - Dental/Oral General Chief complaint: Dental/Oral Stated complaint: Dental Pain Time Seen by Provider: 07/13/23 11:18 Source: patient Mode of arrival: ambulatory History of Present Illness HPI Narrative: 28-year-old female presented for complaint of left upper wisdom tooth pain for about 5 days. She has been taking ibuprofen and Orajel without much relief. She states she believes the tooth is broken. Denies swelling or drainage. She is scheduled with her dentist in 2 months. Denies any other complaints or concerns. States she has tried to find an oral surgeon. MD Complaint: tooth pain Related Data Allergies Allergy/AdvReac Type Severity Reaction Status Date / Time latex Allergy Intermediate Itching Verified 07/13/23 11:09 Penicillins Allergy Intermediate Hives / Verified 07/13/23 11:09 Red Face Review of Systems Review of Systems: CONSTITUTIONAL: Denies body aches, fever, chills ENT: Denies rhinorrhea, congestion, sore throat, or otalgia. Reports dental pain CARDIOVASCULAR: Denies chest pain, palpitations RESPIRATORY: Denies cough or dyspnea. SKIN: Denies rash, itching, or wounds. MUSCULOSKELETAL: Denies myalgia. NEUROLOGIC: Denies headache, numbness, tingling, or weakness. [facility] Past Medical History Medical History ADHD Asthma Bacterial vaginosis Candidiasis of female genitalia GBS carrier GERD (gastroesophageal reflux disease) MTHFR mutation (methylenetetrahydrofolate reductase) Obesity Trichomonas vaginalis (TV) infection Vaginal delivery 01/12/20151393 hrs.8 lbs.4 oz.FStandard Vaginal DeliveryFull [facility] Surgical History Surgical History History of tonsillectomy S/p bilateral myringotomy with tube placement S/P laparoscopic cholecystectomy 03/26/22 Family History Family History Father Bone cancer Social History Social History Smoking status: Never smoker Second hand tobacco smoke exposure: Yes Alcohol intake: never Substance use: never Substance use type: does not use Living arrangements: with family Occupation/Education: occupation Gender identity (if verbalized by the patient): Female Sexual Orientation (if Verbalized by the Patient): Straight or Heterosexual Spiritual care concerns: No Agree to blood products: Yes Comments At time of signature, I have reviewed and agree with nursing past medical, surgical, social and family history unless otherwise noted. Please see nursing chart for further information. There is no relevant family history pertinent to the presenting complaint Exam Narrative: GENERAL: Appears in pain; no acute distress. HEAD: Normocephalic, atraumatic. EYES: EOMI. No redness or drainage. Conjunctivae normal. ENT: Dental pain location of #1, no apparent swelling or abscess; tender, guarding. Mucous membranes pink and moist. TMs normal bilaterally. Throat normal. Uvula midline. no dysphagia, odynophagia, dysphonia, or dyspnea NECK: Normal AROM. No lymphadenopathy. no induration below mandible, no neck pain. CHEST: No respiratory distress. Clear to auscultation. HEART: Regular rate and rhythm. No murmur appreciated. SKIN: Warm, dry, no rash. Normal skin turgor. NEURO: No focal deficits. Alert and oriented x3. Gait steady. Course Course Emergency Course: Patient is aware of diagnosis, understands and agrees to treatment plan. Anticipatory guidance given. Patient agrees to follow-up as directed and is aware of reasons to seek care at the emergency department. Portions of this record may have been created with voice recognition software Level of Care: Express Care Visit MDM - Dental/Oral MDM Narrative Medical decision making narrat
== END 2023-07-13 11:30 | disposition home or self-care (01) ==
PROVIDERS: Emergency Provider Nurse Practitioner Family; PCP Emergency Medicine
DX: K08.89 Other specified disorders of teeth and supporting structures (principal); K21.9 Gastro-esophageal reflux disease without esophagitis; J45.909 Unspecified asthma, uncomplicated; E72.12 Methylenetetrahydrofolate reductase deficiency; E66.9 Obesity, unspecified; Z68.41 Body mass index [BMI] 40.0-44.9, adult
CPT/HCPCS: 99213; G0463

== ENCOUNTER 2023-12-28 12:37 | Emergency (ER) | payer OTHER, SELFPAY ==
--- NOTE | ~2023-12-28 | CT_ITS ---
EXAMINATION: CT abdomen pelvis w con DATE: 12/28/2023 15:46 INDICATION: abdominal bleeding, IUD dislodgement TECHNIQUE: Computed tomography (CT) of the abdomen and pelvis was performed with 100 mL Omnipaque-350 intravenous contrast. Automated exposure control and iterative reconstruction technique were employe d. The dose-length product was 1536.20 mGy-cm. COMPARISON: None. FINDINGS: Lower thorax: Cardiomegaly. Liver: Normal. Biliary/Gallbladder: Gallbladder is absent. No bile duct dilation. Pancreas: No mass or duct dilation. Spleen: Normal. Adrenals:No mass. Kidneys: No suspicious mass, obstructing stone, or hydronephrosis. GI tract: No small or large bowel dilation. Appendix not confidently visualized. No inflammatory proc ess in the right lower quadrant to suggest appendicitis. Mesentery/Peritoneum: No ascites, mass, or free air. Retroperitoneum: No mass. Pelvis: Pelvic organs are within normal limits. Soft Tissues: Small uncomplicated fat-containing umbilical hernia. Bones: No acute osseous finding. IMPRESSION: No acute abdominopelvic process detected. No IUD present. Cardiomegaly. Reviewed, dictated and finalized at location K.
[2023-12-28 12:56] VITALS: BP 122/82; PULSE 88; RESP 15; TEMP 36.6; O2SAT 100
[2023-12-28 14:49] LABS: Basophils Absolute Auto 0.1 K/mm3 (0.0-0.1); Basophils Percent Auto 0.5 % (0.2-1.2); Eosinophils Absolute Auto 0.1 K/mm3 (0-0.3); Eosinophils Percent Auto 0.8 % (0-4.4); Hematocrit 42.2 % (37.0-47.0); Hemoglobin 14.5 g/dL (12.0-15.0); Immature Granulocyte Absolute 0.04 K/mm3 (0.00-0.031); Immature Granulocyte Percent A 0.4 % (0-0.5); Lymphocytes Absolute Auto 1.85 K/mm3 (0.9-3.2); Lymphocytes Percent Auto 18.6 % (18.3-44.2); Mean Corpuscular HGB Conc 34.4 g/dl (32-36); Mean Corpuscular Hemoglobin 31.5 pg (26-34); Mean Corpuscular Volume 91.5 fl (80-100); Mean Platelet Volume 10.2 fl (7.4-10.4); Monocytes Absolute Auto 0.7 K/mm3 (0.1-0.6); Neutrophils Absolute Auto 7.3 K/mm3 (1.3-6.7); Neutrophils Percent Auto 72.7 % (45.5-73.1); Platelet Count Result 235 k/mm3 (150-375); Red Blood Count 4.61 M/mm3 (4.2-5.4); Red Cell Distribution Width 12.3 % (11.5-14.5)
[2023-12-28] MEDS: IBUPROFEN 400 MG TABLET 800 MG (14:54)
[2023-12-28] MEDS: SODIUM CHLORIDE 0.9% IV 1,000 ML 999 ML IV CONT (14:54)
[2023-12-28 15:00] LABS: Prothrombin Time 13.3 Seconds (11.1-14.7)
[2023-12-28 15:01] LABS: Partial Thromboplastin Time 29.1 Seconds (22.3-36.8)
[2023-12-28 15:02] LABS: Bacteria Urine None Seen /hpf; Need Manual Microscopic Reviewed; Non Pathogenic Casts 0-2; RBC Urine >100 /hpf (0-2); Squamous Epithelial Cell Urine None Seen /hpf (Few); WBC Urine 0-5 /hpf (0-3)
[2023-12-28 15:03] LABS: Add Urine Microscopic? YES; Appearance Urine Cloudy (Clear); Bilirubin Urine Negative (Negative); Blood Urine 3+ (Negative); Color Urine Red (Yellow); Glucose Urine UA Negative (Negative); Ketones Urine Negative (Negative); Leukocyte Esterase Ur 1+ LEU/UL (Negative); Nitrate Urine Negative (Negative); Protein Urine 1+ mg/dL (Negative); Specific Grav Ur 1.009 (1.001-1.035); Urobilinogen Urine 0.2 mg/dL (<2.0); pH Urine 6.5 (5.0-9.0)
[2023-12-28 15:10] LABS: Alanine Aminotransferase 17 U/L (6-35); Albumin Level 4.1 g/dL (3.5-5.1); Alkaline Phosphatase 87 U/L (38-126); Anion Gap 8 mmol/L (4-12); Aspartate Amino Transferase 26 U/L (14-36); Bilirubin,Total 0.4 mg/dL (0.2-1.3); Blood Urea Nitrogen 13 mg/dL (7-17); Calcium 9.1 mg/dL (8.4-10.2); Carbon Dioxide 26 mmol/L (22-30); Chloride 104 mmol/L (98-107); Estimated CRCL calculation 126 ml/min; Estimated Glomerular Filt Rate > 60; Glucose 93 mg/dL (65-110); Sodium 138 mmol/L (137-145)
[2023-12-28 15:26] LABS: Beta HCG Quantitative < 2.39 mIU/ML
--- NOTE | 2023-12-28 15:37 | ED.FEMALEGU ---
HPI - Female Genitourinary General Chief complaint: Vaginal Bleeding Stated complaint: vag bleed Time Seen by Provider: 12/28/23 13:55 History of Present Illness HPI Narrative: Patient is a 28-year-old female who presents to the ER with abdominal bleeding. She reports her periods started 2-3 days ago. Patient has an IUD and her last vaginal delivery was approximately 2 and half years ago. She reports she has had 3 live vaginal deliveries and has this IUD since her last 1. Patient reports she has a regular light menstrual cycle since she had the IUD placed. She reports 2 days ago her vaginal bleeding became very heavy and she started passing clots. Today patient reports she passed a large clot with her IUD wrapped in it. Patient has an appointment with her OBGYN on Friday for her annual Pap smear, but patient was concerned with her heavy vaginal bleeding so she came into the ER today for evaluation. She denies abdominal pain, cramping, discomfort. Patient has not taken any medications at home to help relieve her bleeding. She reports her only history is a cholecystectomy. Patient denies any complaints of shortness of breath, chest pain, other signs of illness. Related Data Allergies Allergy/AdvReac Type Severity Reaction Status Date / Time latex Allergy Intermediate Itching Verified 12/28/23 13:00 Penicillins Allergy Intermediate Hives / Verified 12/28/23 13:00 Red Face Review of Systems Review of Systems: All systems reviewed & are unremarkable except as noted in HPI and below PMFSH Past Medical History Medical History ADHD Asthma Bacterial vaginosis Candidiasis of female genitalia GBS carrier GERD (gastroesophageal reflux disease) MTHFR mutation (methylenetetrahydrofolate reductase) Obesity Trichomonas vaginalis (TV) infection Vaginal delivery 01/12/20151393 hrs.8 lbs.4 oz.FStandard Vaginal DeliveryFull Term [facility]Reg[facility]. [facility] Surgical History Surgical History History of tonsillectomy S/p bilateral myringotomy with tube placement S/P laparoscopic cholecystectomy 03/26/22 Family History Family History Father Bone cancer Social History Social History Smoking status: Never smoker Second hand tobacco smoke exposure: Yes Alcohol intake: never Substance use: never Substance use type: does not use Living arrangements: with family Occupation/Education: occupation Gender identity (if verbalized by the patient): Female Sexual Orientation (if Verbalized by the Patient): Straight or Heterosexual Spiritual care concerns: No Agree to blood products: Yes Exam Narrative: GENERAL: Well appearing, well-nourished, non-toxic, in no acute distress. NECK: Supple. No adenopathy, no masses. RESPIRATORY: Airway patent, respirations nonlabored. Clear to auscultation bilaterally, no rales, rhonchi, wheezing. CARDIOVASCULAR: Regular rate and rhythm without murmurs, rubs, or gallops. Peripheral pulses 2+ and equal bilaterally. ABDOMINAL: Soft, nontender, nondistended, no hepatosplenomegaly. Normoactive BS. MUSCULOSKELETAL: Moves all extremities. Strength/ROM intact without gross deformities. SKIN: Warm, dry, normal color. No rashes. NEURO: A&O X3. Speech clear. Cranial nerves II-XII grossly intact. No ataxic movements. GI/: Vaginal exam shows a moderate amount of bright red bleeding without any noticeable clots. PSYCHIATRIC: Appropriate mood and affect. Normal interaction. Course Vital Signs Vital signs: Vital Signs Temperature 36.6 C 12/28/23 12:56 Pulse Rate 88 12/28/23 12:56 Respiratory Rate 15 12/28/23 12:56 Blood Pressure 122/82 12/28/23 12:56 Pulse Oximetry 100
[2023-12-28 15:54] LABS: BEDSIDEPREGUCG Negative (Negative)
[2023-12-28 18:03] VITALS: BP 112/73; PULSE 76; RESP 17; O2SAT 100
== END 2023-12-28 18:07 | disposition home or self-care (01) ==
PROVIDERS: Emergency Provider Registered Nurse
DX: N93.9 Abnormal uterine and vaginal bleeding, unspecified (principal); J45.909 Unspecified asthma, uncomplicated; E66.9 Obesity, unspecified; Z68.41 Body mass index [BMI] 40.0-44.9, adult; K21.9 Gastro-esophageal reflux disease without esophagitis; Z90.49 Acquired absence of other specified parts of digestive tract; I51.7 Cardiomegaly
CPT/HCPCS: 36415; 74177; 80053; 81001; 81025; 84702; 85025; 85610; 85730; 86850; 86900; 86901; 87086; 96360; 99284; A9270; J7030; Q9967

== ENCOUNTER 2024-06-01 15:39 | Emergency (ER) | payer OTHER, SELFPAY ==
[2024-06-01 15:53] VITALS: BP 113/56; PULSE 83; RESP 16; TEMP 37.2; O2SAT 100
--- NOTE | 2024-06-01 15:53 | ED_ITS ---
HPI - Female Genitourinary General Chief complaint: Urogenital-Female Stated complaint: urinary issue Time Seen by Provider: 06/01/24 15:55 Source: patient and RN notes reviewed Mode of arrival: ambulatory Limitations: no limitations History of Present Illness HPI Narrative: 29-year-old female presents with concern for pain with urination and urinary frequency that started yesterday. She denies fever, abdominal, back pain, nausea, vomiting, chills, sweats. MD elicited complaint: UTI Related Data Home Medications ?Medication ?Instructions ?Recorded ?Confirmed ?Last Taken ?Type norethindrone 1 mg-ethinyl tablet 06/01/24 Unknown History estradiol 20 mcg (21)-iron 75 mg (7) tablet (Blisovi Fe 04/[birth year] (28)) Allergies Allergy/AdvReac Type Severity Reaction Status Date / Time latex Allergy Intermediate Itching Verified 06/01/24 15:42 Penicillins Allergy Intermediate Hives / Verified 06/01/24 15:42 Red Face Review of Systems Review of Systems: CONSTITUTIONAL: Denies malaise, chills, sweats, or fever. CARDIOVASCULAR: Denies chest pain, palpitations, or edema. RESPIRATORY: Denies cough or dyspnea. GASTROINTESTINAL: Denies abdominal pain, nausea, vomiting, diarrhea GENITOURINARY: Reports dysuria, frequency, urgency, suprapubic pressure. Denies flank pain or hematuria. SKIN: Denies rash or itching. MUSCULOSKELETAL: Denies back pain or myalgia. All systems reviewed & are unremarkable except as noted in HPI and below PMFSH Past Medical History Medical History ADHD Asthma Bacterial vaginosis Candidiasis of female genitalia GBS carrier GERD (gastroesophageal reflux disease) MTHFR mutation (methylenetetrahydrofolate reductase) Obesity Trichomonas vaginalis (TV) infection Vaginal delivery 01/12/20151393 hrs.8 lbs.4 oz.FStandard Vaginal DeliveryFull Term [facility]Reg[facility] Surgical History Surgical History History of tonsillectomy S/p bilateral myringotomy with tube placement S/P laparoscopic cholecystectomy 03/26/22 Family History Family History Father Bone cancer Social History Social History Smoking status: Never smoker Second hand tobacco smoke exposure: Yes Alcohol intake: never Substance use: never Substance use type: does not use Living arrangements: with family Occupation/Education: occupation Gender identity (if verbalized by the patient): Female Sexual Orientation (if Verbalized by the Patient): Straight or Heterosexual Spiritual care concerns: No Agree to blood products: Yes Comments At time of signature, agree with nursing past medical, surgical, social and family history. There is no relevant family history pertinent to the presenting complaint Exam Narrative: GENERAL: Well-appearing, well-nourished, and in no acute distress. HEAD: Normocephalic. EYES: PERRLA, conjunctivae clear. NECK: Supple. No lymphadenopathy CHEST: Clear to auscultation. No respiratory distress. HEART: Regular rate and rhythm. ABDOMEN: Soft, nontender upon palpation, nondistended, normal active bowel sounds, no palpable or pulsatile masses, no guarding. No CVA tenderness SKIN: Warm, dry, no rash. NEURO: Alert and oriented x3. PSYCH: Normal mood and affect Course Course Emergency Course: Patient is aware of diagnosis, understands and agrees to treatment plan. Anticipatory guidance given. Patient agrees to follow-up as directed and is aware of reasons to seek care at the emergency department. Portions of this record may have been created with voice recognition software Level of Care: Express Care Visit Vital Signs Vital signs: Reviewed. MDM - Female Genitourinary MDM Narrative Medical decision making narrative: Exam findings and UA show no acute concerns or changes; patient is non-toxic appearing and is in no distress. Patient is appropriate for outpatient treatment and follow-up. Differential Diagnosis Differential diagnosis: Likely urinary tract infection and cystitis Critical Care Time Critical Care Time Critical Care Time: No Discharge Plan Discharge Clinical Impression: Urinary tract infection Patient Disposition: Home, Self-Care Condition: Stable Instructions: Antibiotic Form, Urinary Tract Infection in Women (ED) Additional Instructions: We will send a urine culture to the lab; if the culture identifies an organism that the prescribed antibiotic will not treat, you will receive a phone call from an urgent care staff member and an appropriate antibiotic will be prescribed. -Your symptoms should begin to improve within a day of starting antibiotics. But you should finish all the antibiotic pills you get. Otherwise your infection might come back. -Also recommend: increase water intake. Tylenol/ibuprofen as needed for pain or fever -Follow-up with your primary care provider for urine recheck or seek ER visit if condition worsens with high fever, nausea, vomiting and severe back pain. Patient Language: Tajik Prescriptions: New nitrofurantoin monohyd/m-cryst [Macrobid] 100 mg capsule 100 mg PO Q12H 5 Days Qty: 10 0RF Rx Instructions: must administer with a meal/food No Action norethindrone-e.estradiol-iron [Blisovi Fe 04/05 (28)] 1 mg-20 mcg (21)/75 mg (7) tablet Follow-up/Referrals: PHYSICIAN,REACTOR SERVICE OPERATOR [Primary Care Provider] - Time of Disposition: 16:01
[2024-06-01 15:58] LABS: EDUAAPPEAR Clear; EDUABILI Negative (Negative); EDUABLOOD 3+ (Negative); EDUACOLOR1 Yellow; EDUAGLUCOSE Negative (Negative); EDUAKETONE Negative (Negative); EDUALEUKO Trace (Negative); EDUANITRATE Negative (Negative); EDUAPH 6.5; EDUAPROTEIN 1+ (Negative); EDUASPGRAVITY 1.015; EDUAUROBILI 0.2
== END 2024-06-01 16:05 | disposition home or self-care (01) ==
PROVIDERS: Emergency Provider Nurse Practitioner
DX: N39.0 Urinary tract infection, site not specified (principal); J45.909 Unspecified asthma, uncomplicated; K21.9 Gastro-esophageal reflux disease without esophagitis; E72.12 Methylenetetrahydrofolate reductase deficiency; E66.9 Obesity, unspecified; Z68.42 Body mass index [BMI] 45.0-49.9, adult
CPT/HCPCS: 81003; 87086; 99213; G0463